=== PATIENT | female | born 1935 | race Caucasian/White ===

== ENCOUNTER 2017-08-28 02:29 | Inpatient (IN) | payer MEDICARE, OTHER ==
[~2017-08-28] VITALS: Ht 157.5 cm; Wt 62.6 kg
[2017-08-28] VITALS (7 sets, daily range): BP systolic 107–183; BP diastolic 40–82
[~2017-08-28 02:29] MED LIST: ACETAMINOPHEN-1 EAC1 PO; ADULT LOW DOSE81 MG PO; ASPIR 8181 MG PO; ATORVASTATIN CA40 MG PO; B-100 COMPLEX1 EAC1 PO; BENADRYL25 MG PO; CARDIZEM CD180 MG PO; CELEXA20 MG PO; LANOXIN 0.120.125 M1 PO; MEDROLDOSEPACK PO; METOPROLOL SUC100 MG PO; MULTIVITAMINS PO; NORVASC 5 MG TAB5 MG PO; OMEPRAZOLE; PEPCID20 MG PO; PRILOSEC 20 MG20 MG PO; SUPER B COMPLE1 EAC3 PO; TONIC WATER; XARELTO20 MG PO; propanolol PO
[2017-08-28 02:59] LABS: ABSOLUTE BASOPHILS 0.1 thou/uL (0.0-0.2); ABSOLUTE EOSINOPHILS 0.6 thou/uL (0.0-0.7); ABSOLUTE LYMPHOCYTES 2.3 thou/uL (0.8-5.3); ABSOLUTE MONOCYTES 0.7 thou/uL (0.0-1.2); ABSOLUTE NEUTROPHILS 5.3 thou/uL (1.6-8.1); EOSINOPHILS 6.5 %; HEMATOCRIT 35.1 % (37.0-47.0); HEMOGLOBIN 11.7 gm/dL (12.0-15.0); LYMPHOCYTES 25.7 %; MCHC 33.4 g/dL (28.0-37.0); MCV 89.8 fL (80.0-100.0); MPV 9.8 fl. (7.2-11.1); NUCLEATED RBCS 0 /100WBC; PLATELET COUNT* 171 thou/uL (150-400); POLYS 58.8 %; RBC 3.91 mil/uL (4.20-5.00); RDW-CV 15.3 % (10.5-14.5)
[2017-08-28 03:04] LABS: INR 1.2; PROTIME 11.4 Seconds (9.20-11.50)
[2017-08-28 03:09] LABS: ANION GAP 8 mmol/L (7-16); BUN 18 mg/dL (7-18); CALCIUM 8.9 mg/dL (8.5-10.1); CHLORIDE 104 mmol/L (98-107); CO2 28 mmol/L (21-32); CREATININE 1.2 mg/dL (0.6-1.3); GLUCOSE 151 mg/dL (70-99); POTASSIUM 4.4 mmol/L (3.5-5.1); SODIUM 140 mmol/L (136-145)
[2017-08-28 03:20] LABS: ALBUMIN 3.6 g/dL (3.4-5.0); ALKALINE PHOSPHATASE 68 U/L (46-116); LIPASE 229 U/L (73-393); NT-PRO BRAIN NAT PEPTIDE 7870 pg/mL (<300); SGOT 27 U/L (15-37); SGPT 32 U/L (30-65); TOTAL BILIRUBIN 0.5 mg/dL (<0.1-1.0); TROPONIN-I LEVEL <0.06 ng/mL (<0.06)
[2017-08-28 09:23] LABS: CHOLESTEROL 141 mg/dL (<200); HDL CHOLESTEROL 76 mg/dL (>40); LDL CHOLESTEROL 55 mg/dL (<100); SERUM ASSESSMENT Clear; TC:HDL 1.9 Ratio (Not establshd); TRIGLYCERIDE 54 mg/dL (<150); VLDL 11 mg/dL (<40)
--- NOTE | 2017-08-28 14:38 | EKG ---
[place] [address] ELECTROCARDIOGRAM REPORT Name: ELIECER JOHNSON Room: [address] ADM IN M.R.#: [id number] Admission: 08/28/17 Attend Phys: Alberto Bryan Discharge: Date of : 31 Report #: [id number] THIS REPORT FOR: //name// [facility] ED Test Date: 2017-08-28 Test Time: 02:31:45 Pat Name: ELIECER JOHNSON Department: Room: [facility] Gender: F Audit Associate: TO : 1935 Requested By: Karl Gipson Order Number: [id number] MD: Ravinder Brooks Measurements Intervals [place] Rate: 70 P: 0 LA: 53 QRS: 27 QRSD: 76 T: -85 QT: 395 QTc: 427 Interpretive Statements Ventricular-paced complexes No further rhythm analysis attempted due to paced rhythm Borderline low voltage, extremity leads Repol abnrm suggests ischemia, diffuse leads Compared to ECG 06/29/2017 01:44:57 Early repolarization now present Possible ischemia now present Electronically Signed On 08-28-2017 14:38:31 PANMAN by Ravinder Brooks [email or web address] <ELECTRONICALLY SIGNED> By: Ravinder Brooks MD, FACC 08/28/17 1438 0231 023 Ravinder Brooks MD, FACC /EPI
[2017-08-29] VITALS: BP 112/49
[2017-08-29 04:00] VITALS: BP 115/50
[2017-08-29 04:14] LABS: ABSOLUTE BASOPHILS 0.1 thou/uL (0.0-0.2); ABSOLUTE EOSINOPHILS 0.4 thou/uL (0.0-0.7); ABSOLUTE LYMPHOCYTES 2.3 thou/uL (0.8-5.3); ABSOLUTE MONOCYTES 0.5 thou/uL (0.0-1.2); ABSOLUTE NEUTROPHILS 2.2 thou/uL (1.6-8.1); BASOPHILS 0.9 %; EOSINOPHILS 7.6 %; HEMATOCRIT 30.3 % (37.0-47.0); HEMOGLOBIN 10.1 gm/dL (12.0-15.0); LYMPHOCYTES 41.8 %; MCH 29.6 pg (26.0-34.0); MCHC 33.2 g/dL (28.0-37.0); MONOCYTES 9.4 %; MPV 9.5 fl. (7.2-11.1); NUCLEATED RBCS 0 /100WBC; PLATELET COUNT* 138 thou/uL (150-400); POLYS 40.3 %; RBC 3.41 mil/uL (4.20-5.00); RDW-CV 14.6 % (10.5-14.5); WBC 5.6 thou/uL (4.0-11.0)
[2017-08-29 04:19] LABS: CALCIUM 8.6 mg/dL (8.5-10.1); CREATININE 1.4 mg/dL (0.6-1.3)
[2017-08-29 04:22] LABS: POTASSIUM 3.1 mmol/L (3.5-5.1)
[2017-08-29 07:51] VITALS: BP 131/68
[2017-08-29 07:55] VITALS: BP 131/68
[2017-08-29] MEDS ORDERED: LASIX 20 MG TAB20 MG PO (09:44)
[2017-08-29] MEDS ORDERED: KLOR-CON 1010 MEQ PO (09:45)
[2017-08-29] MEDS ORDERED: SYNTHROID50 MCG PO (11:46)
--- NOTE | 2017-08-31 10:12 | CON ---
[address] [address] CONSULTATION Name: ELIECER JOHNSON Room: [address] IN M.R.#: [id number] Admission: 08/28/17 Attend Phys: Alberto Bryan Discharge: 08/29/17 Date of : 31 Report #: [id number] THIS REPORT FOR: //name// CC: Corwin Ernst INPATIENT CONSULTATION PRIMARY PERFORMANCE IMPROVEMENT SPECIALIST: Claude Pena MD REQUESTING PHYSICIAN FOR CONSULTATION: Dr. Koroma. PRIMARY CARE PHYSICIAN: Corwin Bonner DO REASON FOR CONSULTATION: Shortness of breath. HISTORY OF PRESENT ILLNESS: The patient is an 81-year-old woman with a history of nonischemic cardiomyopathy, Takotsubo etiology and mild to moderate aortic insufficiency presenting with increasing shortness of breath. Chest x-ray was unremarkable but her symptoms did improve with Lasix. She had an episode of chest discomfort. Her ECG was nondiagnostic. She has a history of a permanent pacemaker. She was admitted for observation and her troponin levels are normal and she is asymptomatic for shortness of breath after receiving IV Lasix overnight. She denies syncope or presyncope. Over the summer, she did notice leg swelling but really had only been shortness of breath recently. She denies noncompliance with other medical therapies for her cardiomyopathy. PAST MEDICAL HISTORY: She had a cardiac catheterization in June of last year which demonstrated nonischemic Takotsubo cardiomyopathy. She had an AV block permanent pacemaker. She has mild to moderate aortic insufficiency, hypertension, and the aforementioned hyperlipidemia. SOCIAL HISTORY: She is a nonsmoker. FAMILY HISTORY: Noncontributory. HOME MEDICATIONS: Atorvastatin 40 mg daily, Celexa daily, digoxin 125 mcg daily, diltiazem 180 mg daily, Toprol-XL 200 mg daily, and Xarelto 15 mg daily. REVIEW OF SYSTEMS: GASTROINTESTINAL: [place], [place] [address] CONSULTATION Name: ELIECER JOHNSON Room: [address]#: [id number] Admission: 08/28/17 Attend Phys: Alberto Bryan Discharge: 08/29/17 Date of : 31 Report #: [id number] GENITOURINARY: No dysuria or hematuria. PAD: Denies any history of cardiovascular, strokes, or claudication. NEUROLOGIC: Denies headaches or seizures. She has a remote history of syncope, but denies syncope with this episode. GENERAL: No fevers or chills. ALLERGIES: Denies any aspirin or contrast allergies. PSYCHIATRIC: No depression or anxiety. SKIN: No rashes. EYES: she does use glasses. CARDIOVASCULAR: As above, positive chest discomfort, positive for shortness of breath, positive edema intermittent. PHYSICAL EXAMINATION: VITAL SIGNS: Blood pressure this morning is 155/65, pulse is 68, weight is 62.7 kilos. GENERAL: This is a pleasant elderly female. She is alert, oriented, in no apparent distress. NECK: Supple. No jugular venous distention. CARDIOVASCULAR: Regular. There is faint diastolic murmur. LUNGS: Clear to auscultation. ABDOMEN: Nontender. EXTREMITIES: There is no peripheral edema. IMAGING DATA: Chest x-ray reveals cardiomegaly, no significant infiltrates. LABORATORY DATA: Cardiac troponin level was 0.06 x 2 sets. IMPRESSION AND PLAN: 1. Atrial fibrillation. This is not really an issue. She presents for stable heart racing, we will continue with anticoagulation. 2. Acute diastolic congestive heart failure. I think she should be on a mild dose of diuretics. I will prescribe her Lasix 20 mg with 10 of potassium to be taken 3 days per week. 3. Nonischemic cardiomyopathy. She will continue with aggressive medical therapy. 4. Chest pain. I think this is noncardiac related to ischemia maybe related to congestive heart failure. 5. It is okay for her to continue with present medical therapy with addition of intermittent Lasix. Thank you for allowing me to participate in her care. <ELECTRONICALLY SIGNED> By: Ravinder Brooks MD, FACC 08/31/17 1012 1333 [id number] Brooks MD, FACC /nt
== END 2017-08-29 12:45 | disposition home or self-care (01) | DRG 291 ==
LOC: M.ERS 02:29 → M.3W 03:31 → M.TBA-ER 03:31 → M.3W 04:20
PROVIDERS: Emergency Medicine; ADMIT Internal Medicine
DX: I50.31 Acute diastolic (congestive) heart failure (principal); J96.20 Acute and chronic respiratory failure, unspecified whether with hypoxia or hypercapnia; I42.9 Cardiomyopathy, unspecified; I12.9 Hypertensive chronic kidney disease with stage 1 through stage 4 chronic kidney disease, or unspecified chronic kidney disease; N18.3 Chronic kidney disease, stage 3 (moderate); E78.5 Hyperlipidemia, unspecified; E03.9 Hypothyroidism, unspecified; I48.91 Unspecified atrial fibrillation; I25.2 Old myocardial infarction; Z90.49 Acquired absence of other specified parts of digestive tract; Z95.0 Presence of cardiac pacemaker; Z79.01 Long term (current) use of anticoagulants; Z79.899 Other long term (current) drug therapy; Z82.49 Family history of ischemic heart disease and other diseases of the circulatory system

== ENCOUNTER 2017-09-08 09:50 | Inpatient (IN) | payer MEDICARE, OTHER ==
[~2017-09-08] VITALS: Ht 157.5 cm; Wt 60.8 kg
[~2017-09-08 09:50] MED LIST changes: +KLOR-CON 1010 MEQ PO; +LASIX 20 MG TAB20 MG PO; +SYNTHROID50 MCG PO
[2017-09-08 09:56] VITALS: BP 200/92
[2017-09-08 10:21] LABS: ABSOLUTE BASOPHILS 0.2 thou/uL (0.0-0.2); ABSOLUTE EOSINOPHILS 0.4 thou/uL (0.0-0.7); ABSOLUTE LYMPHOCYTES 1.6 thou/uL (0.8-5.3); ABSOLUTE MONOCYTES 0.8 thou/uL (0.0-1.2); ABSOLUTE NEUTROPHILS 4.5 thou/uL (1.6-8.1); BASOPHILS 2.5 %; EOSINOPHILS 4.8 %; HEMATOCRIT 38.3 % (37.0-47.0); HEMOGLOBIN 12.7 gm/dL (12.0-15.0); LYMPHOCYTES 21.2 %; MCH 29.4 pg (26.0-34.0); MCHC 33.1 g/dL (28.0-37.0); MCV 88.8 fL (80.0-100.0); MONOCYTES 11.2 %; MPV 9.4 fl. (7.2-11.1); NUCLEATED RBCS 0 /100WBC; PLATELET COUNT* 195 thou/uL (150-400); POLYS 60.3 %; RBC 4.31 mil/uL (4.20-5.00); RDW-CV 14.8 % (10.5-14.5); WBC 7.4 thou/uL (4.0-11.0)
[2017-09-08 10:28] LABS: ANION GAP 5 mmol/L (7-16); BUN 16 mg/dL (7-18); CALCIUM 9.3 mg/dL (8.5-10.1); CHLORIDE 98 mmol/L (98-107); CO2 31 mmol/L (21-32); CREATININE 1.1 mg/dL (0.6-1.3); GLUCOSE 118 mg/dL (70-99); POTASSIUM 4.7 mmol/L (3.5-5.1); SODIUM 134 mmol/L (136-145)
[2017-09-08 10:46] LABS: ALBUMIN 3.6 g/dL (3.4-5.0); ALKALINE PHOSPHATASE 71 U/L (46-116); APTT 24.5 Seconds (25.0-31.3); CK-MB MASS 0.7 ng/mL (<0.5-3.6); INR 1.1; LIPASE 208 U/L (73-393); MAGNESIUM 1.9 mg/dL (1.8-2.4); NT-PRO BRAIN NAT PEPTIDE 6146 pg/mL (<300); PROTIME 10.9 Seconds (9.20-11.50); SGOT 36 U/L (15-37); SGPT 36 U/L (30-65); TOTAL BILIRUBIN 1.1 mg/dL (<0.1-1.0); TOTAL PROTEIN 7.4 g/dL (6.4-8.2); TROPONIN-I LEVEL <0.06 ng/mL (<0.06)
[2017-09-08 13:04] VITALS: BP 187/100
--- NOTE | 2017-09-08 13:15 | NUR ---
RECEIVED REPORT. PT TRANSFERRED TO ROOM 224 VIA CART. VSS. CARDIAC MONTIORING IN PLACE AFIB. ADMISISON HISTORY AND ASSESSMENT COMPLETED CHARTED. PT ALERT AND ORIENTED. PT ON RA HOWEVER PT IS SOB WITH ACTIVITY. 2L ON STAND BY. PT DENIES ANY COMPLAINTS OF PAIN OR DISCOMFORT. PT IS UP WITH STAND BY ASSISTANCE. PT ORIENTED TO ROOM AND CALL LIGHT. PT COMMUNICATES UNDERSTANDING. PT'S BELONINGS IN CARDIAC REHAB CURRENTLY. CALLED AND THEY STATED THEY WOULD BRING UP HER BELONGINGS TO HER ROOM. PT'S BP ELEVATED-CARDIOLOGY CONSULTED. PT'S METOPROLOL GIVEN. CALL LIGHT IS WITHIN REACH. WILL CONTINUE TO MONITOR FOR DURAITON OF SHIFT.
[2017-09-08 15:39] VITALS: BP 154/73
--- NOTE | 2017-09-08 16:14 | 2DMMODE ---
[place] [address] 2 D/M-MODE ECHOCARDIOGRAM Name: ELIECER JOHNSON Room: [facility] IN [facility]#: [id number] Admission: 09/08/17 Attend Phys: Dieudonne Rodriguez, Discharge: Date of : 31 Date of Service: 09/08/17 1614 Report #: [id number] THIS REPORT FOR: //name// APPROVED REPORT Study performed: 09/08/2017 15:51:39 EXAM: Limited 2D Echocardiogram Patient Location: In-Patient Room #: 224 Status: routine BSA: 1.62 HR: 103 bpm BP: 187/100 mmHg Rhythm: NSR Other Information Study Quality: Good Indications Dyspnea Chest Pain Volumes Left Atrial Volume (Systole) LA ESV Index: 66.30 mL/m2 Left Ventricle The left ventricle is normal size. There is normal LV segmental wall motion. Mild concentric left ventricular hypertrophy. The left ventricular systolic function is normal. The left ventricular ejection fraction is within the normal range. LVEF is 55%. This study is not technically sufficient to allow evaluation of the LV diastolic function due to atrial fibrillation. Right Ventricle The right ventricle is normal size. The right ventricular systolic function is normal. Pacemaker lead is present in the right ventricle. Atria Left atrium is moderately dilated. Right atrium is mildly dilated. Aortic Valve Mild [place] [address] 2 D/M-MODE ECHOCARDIOGRAM Name: ELIECER JOHNSON Room: [address] IN M.R.#: [id number] Admission: 09/08/17 Attend Phys: Dieudonne Rodriguez, Discharge: Date of : 31 Date of Service: 09/08/17 1614 Report #: [id number] Mitral Valve The mitral valve is normal in structure. Tricuspid Valve The tricuspid valve is normal in structure. Pulmonic Valve The pulmonary valve is normal in structure. Great Vessels The aortic root is normal in size. IVC is normal in size and collapses >50% with inspiration. Pericardium There is no pericardial effusion. <Conclusion> The left ventricle is normal size. Mild concentric left ventricular hypertrophy. The left ventricular systolic function is normal. The left ventricular ejection fraction is within the normal range. LVEF is 55%. This study is not technically sufficient to allow evaluation of the LV diastolic function due to atrial fibrillation. The right ventricle is normal size. Left atrium is moderately dilated. Right atrium is mildly dilated. Mild aortic valve sclerosis. The mitral valve is normal in structure. The tricuspid valve is normal in structure. IVC is normal in size and collapses >50% with inspiration. There is normal LV segmental wall motion. Pacemaker lead is present in the right ventricle. <ELECTRONICALLY SIGNED> By: Jordan Farmer MD, FACC 09/08/17 161 13 13 Jordan Farmer MD, FAC /INF
--- NOTE | 2017-09-08 17:41 | EKG ---
[place] [address] ELECTROCARDIOGRAM REPORT Name: ELIECER JOHNSON Room: [address] ADM IN M.R.#: [id number] Admission: 09/08/17 Attend Phys: Dieudonne Rodriguez MD Discharge: Date of : 33 Report #: [id number] THIS REPORT FOR: //name// [facility] ED Test Date: 2017-09-08 Test Time: 09:52:04 Pat Name: ELIECER JOHNSON Department: Room: [facility] Gender: F Rn Labor Delivery: Amanda STANTON : 1935 Requested By: Bryce Catherine Order Number: [id number] MD: Claude ePna Measurements Intervals [place] Rate: 122 P: [place]: QRS: -6 QRSD: 74 T: 220 QT: 327 QTc: 466 Interpretive Statements Atrial fibrillation Inferior infarct, age indeterminate Abnrm T, consider ischemia, anterolateral lds Compared to ECG 08/28/2017 02:31:45 Ventricular premature complex(es) now present Myocardial infarct finding now present Early repolarization no longer present Possible ischemia still present Electronically Signed On 09-08-2017 17:41:07 RAMP SERVICE MAN by Claude Pena [email or web address] <ELECTRONICALLY SIGNED> By: Claude Pena MD, FACC 09/08/17 1741 0952 0952 Claude Pena MD, FACC /EPI
[2017-09-08 20:00] VITALS: BP 146/78
--- NOTE | 2017-09-08 23:56 | NUR ---
PT A/OX4, AFIB ON THE MONITOR, RA, UP AD LAQUITA, FREE FROM SOA/PAIN, MEDS/ASSESSMENT PER CHARTING, HOURLY ROUNDING IN PLACE, FALL PRECAUTIONS IN PLACE, BED LOW LOCKED POSITION AND CALL LIGHT IN REACH, VSS, WILL CONT TO MONITOR.
[2017-09-09] VITALS: BP 128/53
[2017-09-09 03:57] VITALS: BP 143/59
[2017-09-09 07:53] VITALS: BP 150/73
--- NOTE | 2017-09-09 08:00 | NUR ---
RECEVIED REPORT. ASSUMED CARE OF PT AT 0730. VSS. CARDIAC MOTNIORING IN PLACE A-PACED WITH UNDERLYING AFIB. AM ASSESSMENT AND VITALS COMPLETED CHARTED. PT ALERT AND ORIENTED. PT ON RA. PT UP WITH SBA TO BATHROOM THIS AM. PT HAS NOTED EXERTIONAL DYSPNEA. PT'S O2 SAT 96% ON RA. PT ALERT AND OREINTED. IV SALINE LOCKED. PT DENIES ANY COMPLAINTS OF PAIN OR DISCOMFORT THIS AM. PT INFORMED OF PLAN OF CARE. PT COMMUNICATES UNDERSTANDING. CALL LIGHT IS WITHIN REACH. WILL CONTINUE TO MOTNIOR FOR DURAITON OF SHIFT.
[2017-09-09] MEDS ORDERED: SYNTHROID75 MCG PO (09:26)
[2017-09-09 10:33] VITALS: BP 150/73
--- NOTE | 2017-09-09 11:30 | NUR ---
DISCAHRGE ORDERS RECEIVED AND PREPARED. IV AND CARDIAC MONITORING DISCONTINUED. PT EDUCATED ON DISCHARGE INSTRCUTIONS. PT COMMUNICATES UNDERSTANDING. PT'S SCRIPT SENT TO PT'S PHARMACY. PT GIVEN COPY OF DISCHARGE PAPERWORK. PT ESCORTED OFF UNIT VIA W/C. PT LEFT IN PRIVATE VEHICLE.
--- NOTE | 2017-09-09 15:43 | EKG ---
[place] [address] ELECTROCARDIOGRAM REPORT Name: ELIECER JOHNSON Room: [address] DIS IN M.R.#: [id number] Admission: 09/08/17 Attend Phys: Dieudonne Rodriguez MD Discharge: 09/09/17 Date of : 33 Report #: [id number] THIS REPORT FOR: //name// [facility] Test Date: 2017-09-08 Test Time: 09:12:36 Pat Name: ELIECER JOHNSON Department: Room: [address] Gender: F Bread Jockey: 27 : 1935 Requested By: Claude Pena Order Number: [id number] Miguel MD: Jordan Farmer Measurements Intervals [place] Rate: 104 P: [place]: QRS: 7 QRSD: 74 T: 244 QT: 336 QTc: 442 Interpretive Statements Afib/flut and V-paced complexes No further rhythm analysis attempted due to paced rhythm Repol abnrm, possible ischemia Compared to ECG 08/28/2017 02:31:45 No significant changes Electronically Signed On 09-09-2017 15:43:41 STRIPPER AND OPAQUER APPRENTICE by Jordan Farmer [email or web address] <ELECTRONICALLY SIGNED> By: Jordan Farmer MD, [facility] 09/09/17 1543 0912 0912 Jordan Farmer MD, [facility] /EPI
== END 2017-09-09 11:29 | disposition home or self-care (01) | DRG 291 ==
LOC: M.ERS 09:50 → M.2W 10:45 → M.TBA-ER 10:45 → M.2W 13:29
PROVIDERS: Family Medicine; ADMIT Internal Medicine
DX: I13.0 Hypertensive heart and chronic kidney disease with heart failure and stage 1 through stage 4 chronic kidney disease, or unspecified chronic kidney disease (principal); I50.33 Acute on chronic diastolic (congestive) heart failure; E87.1 Hypo-osmolality and hyponatremia; J90 Pleural effusion, not elsewhere classified; I48.91 Unspecified atrial fibrillation; N18.3 Chronic kidney disease, stage 3 (moderate); E03.9 Hypothyroidism, unspecified; Z90.49 Acquired absence of other specified parts of digestive tract; Z95.0 Presence of cardiac pacemaker; Z88.8 Allergy status to other drugs, medicaments and biological substances; Z82.49 Family history of ischemic heart disease and other diseases of the circulatory system; Z79.899 Other long term (current) drug therapy; Z79.01 Long term (current) use of anticoagulants

== ENCOUNTER 2017-09-25 20:53 | Inpatient (IN) | payer MEDICARE, OTHER ==
[~2017-09-25] VITALS: Ht 165.1 cm; Wt 59.0 kg
[2017-09-25 20:00] VITALS: BP 132/61
[~2017-09-25 20:53] MED LIST changes: +SYNTHROID75 MCG PO
[2017-09-25 20:54] VITALS: BP 147/84
[2017-09-25 21:42] LABS: ABSOLUTE BASOPHILS 0.1 thou/uL (0.0-0.2); ABSOLUTE EOSINOPHILS 0.2 thou/uL (0.0-0.7); ABSOLUTE LYMPHOCYTES 1.4 thou/uL (0.8-5.3); ABSOLUTE MONOCYTES 0.6 thou/uL (0.0-1.2); ABSOLUTE NEUTROPHILS 4.6 thou/uL (1.6-8.1); BASOPHILS 1.2 %; EOSINOPHILS 2.7 %; HEMATOCRIT 36.6 % (37.0-47.0); HEMOGLOBIN 12.1 gm/dL (12.0-15.0); LYMPHOCYTES 20.3 %; MCH 29.2 pg (26.0-34.0); MCV 88.6 fL (80.0-100.0); MONOCYTES 8.5 %; MPV 9.3 fl. (7.2-11.1); NUCLEATED RBCS 0 /100WBC; PLATELET COUNT* 187 thou/uL (150-400); POLYS 67.3 %; RBC 4.13 mil/uL (4.20-5.00); RDW-CV 14.4 % (10.5-14.5); WBC 6.9 thou/uL (4.0-11.0)
[2017-09-25 21:51] LABS: APTT 27.1 Seconds (25.0-31.3); INR 1.2; PROTIME 11.6 Seconds (9.20-11.50)
[2017-09-25 21:53] LABS: ANION GAP 8 mmol/L (7-16); BUN 20 mg/dL (7-18); CALCIUM 9.2 mg/dL (8.5-10.1); CHLORIDE 101 mmol/L (98-107); CO2 29 mmol/L (21-32); CREATININE 1.3 mg/dL (0.6-1.3); GLUCOSE 133 mg/dL (70-99); POTASSIUM 4.4 mmol/L (3.5-5.1); SODIUM 138 mmol/L (136-145)
[2017-09-25 22:00] LABS: ALBUMIN 3.6 g/dL (3.4-5.0); ALKALINE PHOSPHATASE 60 U/L (46-116); SGOT 24 U/L (15-37); SGPT 26 U/L (30-65); TOTAL BILIRUBIN 0.8 mg/dL (<0.1-1.0); TROPONIN-I LEVEL <0.06 ng/mL (<0.06)
[2017-09-25 22:43] LABS: URINE BILIRUBIN NEGATIVE (Negative); URINE BLOOD TRACE (Negative); URINE CLARITY CLEAR; URINE COLOR YELLOW; URINE GLUCOSE-RANDOM NEGATIVE (Negative); URINE KETONES TRACE (Negative); URINE LEUKOCYTES-REFLEX 1+ (Negative); URINE NITRITE-REFLEX NEGATIVE (Negative); URINE PROTEIN 1+ (Negative); URINE UROBILINOGEN 0.2 E.U./dl (0.2-1.0)
[2017-09-25 22:58] LABS: SQUAMOUS >10 Many /LPF (0-3)
[2017-09-25 22:59] LABS: CASTS None Seen /LPF (None Seen); CRYSTALS None Seen /LPF (None Seen); URINE RBC None Seen /HPF (0-2); URINE WBC-REFLEX >25 Many /HPF (0-5)
[2017-09-25 23:03] LABS: BE -0.4 mmol/L (-2 to +3); HCO3 23.4 mmol/L (22.0-26.0); PCO2 35.5 mmHg (35.0-45.0); PO2 78.4 mmHg (75.0-100.0); pH 7.436 (7.340-7.450)
[2017-09-25 23:30] VITALS: BP 158/80
--- NOTE | 2017-09-26 03:24 | NUR ---
PATIENT ADMITTED TO THE FLOOR FOR SOA, DIZZINESS, AND NEAR SYCOPE. ALERT AND ORIENTED X 4. CONT. A-FIB ON MONITOR. DENIES PAIN OR DISCOMFORT. NO SIGN OF DISTRESS WILL PROCEED WITH CURRENT PLAN OF CARE IN PLACE.
[2017-09-26 04:00] VITALS: BP 141/64
[2017-09-26 08:00] VITALS: BP 138/61
--- NOTE | 2017-09-26 11:49 | EKG ---
[place] [address] ELECTROCARDIOGRAM REPORT Name: ELIECER JOHNSON Room: [address] ADM IN M.R.#: [id number] Admission: 09/25/17 Attend Phys: Nima Almendarez, Discharge: Date of : 33 Report #: [id number] THIS REPORT FOR: //name// [facility] ED Test Date: 2017-09-25 Test Time: 21:03:07 Pat Name: ELIECER JOHNSON Department: Room: [facility] Gender: F Biosolids Management Technician: TV : 1935 Requested By: Michelle Laws Order Number: [id number] MD: Ravinder Brooks Measurements Intervals [place] Rate: 72 P: MD: QRS: -2 QRSD: 84 T: -69 QT: 392 QTc: 430 Interpretive Statements Afib/flut and V-paced complexes No further rhythm analysis attempted due to paced rhythm Probable LVH with secondary repol abnrm Compared to ECG 09/08/2017 09:52:04 Myocardial infarct finding no longer present Possible ischemia no longer present Electronically Signed On 09-26-2017 11:49:29 INVENTORY CONTROL ASSOCIATE by Ravinder Brooks [email or web address] <ELECTRONICALLY SIGNED> By: Ravinder Brooks MD, FACC 09/26/17 1149 02 02 Ravinder Brooks MD, FAC /EPI
--- NOTE | 2017-09-26 12:05 | NUR ---
ASSUMED PT CARE AT 0730. FULL ASSESMENT DONE CHARTED. PT A/O X4, DENIES PAIN, VSS, AFIB/VPACED ON THE MONITOR. PT HOPEFUL TO GO HOME TODAY, PT EDUCATED THAT THE NEUROLOGIST IS COMING TO SEE HER TODAY. PT AGREEABLE TO THIS. PTS HOME MEDS RESTARTED, NS INFUSING TO LEFT AC AT 100MLS/HR. FALL PRECATUIOINS IN PLACE, CALL LIGHT IN REACH. WILL CONTINUE WITH PLAN OF CARE.
[2017-09-26 12:11] VITALS: BP 144/77
[2017-09-26 16:15] VITALS: BP 126/63
[2017-09-26 17:09] VITALS: BP 126/63
--- NOTE | 2017-09-26 19:06 | NUR ---
PT WAS HOPEFUL TO GO HOME TODAY,HER SON AND DIL HERE MOST OF THE DAY, EXPRESSED CONCERN ABOUT PT GOING HOME AND BEING WEAK, THEY WANT PT TO HAVE SOME THERAPY IS POSSIBLE. PT SPOKE TO DR CRAWFORD AND IS WILLING TO STAY AND HAVE MORE LABS DRAWN AND PT/OT TOMORROW. FALL PRECATUINS IN PLACE, PT UNSTEADY ON FEET. VSS, AFIB/VPACED ON THE MONITOR. WILL CONTINUE TO MONITOR.
[2017-09-26 20:00] VITALS: BP 136/76
[2017-09-27] VITALS (12 sets, daily range): BP systolic 134–172; BP diastolic 58–92
[2017-09-27 04:38] LABS: HEMATOCRIT 30.8 % (37.0-47.0); HEMOGLOBIN 10.5 gm/dL (12.0-15.0); MCH 29.9 pg (26.0-34.0); MCHC 34.1 g/dL (28.0-37.0); MCV 87.5 fL (80.0-100.0); MPV 9.5 fl. (7.2-11.1); RBC 3.52 mil/uL (4.20-5.00); RDW-CV 14.5 % (10.5-14.5); WBC 6.3 thou/uL (4.0-11.0)
[2017-09-27 05:10] LABS: CALCIUM 8.2 mg/dL (8.5-10.1); CREATININE 1.1 mg/dL (0.6-1.3); MAGNESIUM 1.5 mg/dL (1.8-2.4)
--- NOTE | 2017-09-27 06:46 | NUR ---
THIS NURSE ASSUMES CARE OF PT 09/26/17 AT 1930, PT IS ALERT AND ORIENTED X4, PT RESTS QUIETLY WITH EYES CLOSED MOST OF THIS SHIFT, PT TRACING A FIB VPACED ON CARDIAC MONITORING, PT PLACED ON 2L SUPPLEMENTAL O2 THIS AM FOR O2 SAT IN LOW 90S AND INCREASED WORK OF BREATHING, PT UP TO BATHROOM WITH ASSIST THROUGHOUT THE NIGHT
--- NOTE | 2017-09-27 15:00 | NUR ---
MET WITH PT AND THEN SPOKE WITH DTR/MELQUIADES TEJADA OVER THE PHONE. ALSO MET WITH SON/SUMAN IN WAITING ROOM. PT LIVES ALONE. KNOWN TO CM FROM ADMIT IN JUN WHEN SHE WENT TO STAY WITH MARIAH/ROSITA IN [place] WITH RIA GARDUNO. PT ADMITTED WITH AMS. PT WAS CONFUSED DURING CONVERSATION, UNABLE TO ANSWER ALL QUESTIONS AND BECAME FRUSTRATED. PER ROSITA, PT HAS DEMENTIA AND HAS BEEN LIVING ALONE SINCE SHE LEFT HER HOUSE IN JUN. PT HAD HH WHILE SHE WAS AT [employer] BUT DISCONTINUED THEM BEFORE RETURNING HOME. PT HAS BEEN DRIVING SOME. ROSITA AND AND PT'S SON/SUMAN CHECK ON PT REGULARLY/AT LEAST EVERY WEEKEND. ROSITA DOES SHOPPING, MAKES UP MEALS THAT PT CAN HEAT UP AND DOES CLEANING AND LAUNDRY. SUMAN STATED THAT HE COMES UP WITH HIS FROM [place] AND THEY STAY WITH PT PERIODICALLY. HE AND HIS LIVED WITH PT FOR A YEAR A FEW YEARS AGO. HE REPORTS SEEING A 'STEADY DECLINE' IN HER MENTAL CAPACITY. BOTH CHILDREN VOICED CONCERN ABOUT PT BEING ALONE BUT ROSITA DOESN'T WANT TO 'PUSH' PT TO MOVE. BOTH STATED THEY FEEL PT SHOULD BE IN AN ASSISTED LIVING SITUATION AND ONE HAD BEEN ARRANGED ABOUT A YEAR AGO IN [place], BUT PT DECLINED. SUMAN STATED THAT PT 'PUT HERSELF' ON THE WAITING LIST AT THE [facility] A YEAR AGO AND HE SPOKE WITH THEM TODAY AND THERE MAY BE AN APT IN ASSISTED LIVING SOON. AT THIS TIME, FAMILY IS WILLING FOR PT TO GO HOME WITH [facility] AND HH AND CONSIDER LIZETH AFTER THAT. SHE HAS HAD [facility] IN PAST AND ARE INTERESTED IN IT. SUMAN'S CAN STAY WITH PT FOR NOW. CALLED AND FAXED INITIAL REFERRAL TO [facility]. WILL FOLLOW
--- NOTE | 2017-09-27 17:57 | NUR ---
VSS, PT IS PROGROGRESSING TOWARDS GOAL, PT IS TRAACING V-PACED ON THE MONITOR AND UP WITH ONE AND IS CONFUSED, AND O2 NEEDS ARE RA, PT DENIES ANY PAIN AND HAS WORKED WITH PT/OT/SP,, PT HAS BEEN UP TO CHAIR FOR ALL MEALS AND DENIES ANY PAIN AT THIS TIME HOURLY ROUNDS COMPLETED.
[2017-09-28] VITALS (11 sets, daily range): BP systolic 129–163; BP diastolic 51–74
--- NOTE | 2017-09-28 04:24 | NUR ---
ASSUMED PT CARE AT 1930, PT IS AWAKE AND ALERT TO SELF AND PLACE. PT IS TRACING VPACED ONT HE MONITOR, ON RA SATTING MID TO HIGH 90'S. PT HAS HAD EPISODES OF CONFUSION THROUGHOUT THE NIGHT. NEURO CHECKS COMPLETED CHARTED. IVF INFUSING PER MAR. PT DENIES ANY PAIN OR NEEDS AT THIS TIME. PT DOES NOT CALL OUT CORRECTLY, PT SET OFF BED ALARM, AND TRIED TO UNPLUG THE BED FROM THE WALL TO STOP THE ALARM FROM GOING OFF, PT WAS GIVEN LOT'S OF VERBAL EDUCATION ON NEED TO CALL OUT FOR NEEDS. BED IN LOW POSITION, CALL LIGHT IN REACH, BED ALARM ON, YELLOW ARM BAND AND SOCKS IN PLACE. HOURLY ROUNDING COMPLETED FOR PT SAFETY.
--- NOTE | 2017-09-28 09:24 | NUR ---
ASSUMED CARE OF PT THIS AM AROUND 0715- ELECTRICAL MECHANIC IN PLACE ORDERED, TRACING V-PACED- UPON ASSESSMENT PT NOTED TO BE RESTING IN BED- PT NOTED TO BE CONFUSED, WITH WORDS NOT MAKING SINCE THIS AM- WHILE ADMINISTERING MEDICAITONS PT NOTED TO BE PICKING GOWN AND COVERS STATING THAT THERE WAS A PILL THAT WASN'T THERE- TRYING YO MAIL MESSENGER CONTRACTOR MEDICATIONS IN HAND THAT WERE NOT THERE- WHEN TRYING TO REDIRECT, PT NOTED TO BECOME AGGITATED- CONTINENT OF BOWEL AND BLADDER- ASSIST X1 WITH TRANSFERS- LCTA, DIMINISHED IN BASES- VSS, 02 SATS 98% ON RA- IV NOTED TO RIGHT FOREARM INTACT, IVF INFUSING PRESCIBED- IV ABT GIVEN THIS AM, NO ADVERSE REACTIONS TO NOTE- ABDOMEN SOFT/ROUND/NON-TENDER, BS X4 QUADS- PT REPORTS LAST BM 09/27/17, R/T COGNITION UNABLE TO KNOW AT THIS TIME- TRACE EDEME NOTED TO BLE- NEURO CHECKS IN PLACE INDICATED- PT DENIES ANY C/O PAIN/DISCOMFORT AT THIS TIME- GOOD PO INTAKE NOTED WITH BREAKFAST- CALL LIGHT AND PERSONAL BELONGINGS WITH IN REACH- BED ALARM INPLACE AND WORKING FOR PT SAFETY- HOURLY ROUNDS IN PLACE R/T SAFETY/NEEDS- ALL NEEDS MET AT THIS TIME-WCTM
--- NOTE | 2017-09-28 12:00 | NUR ---
CONTINUE TO FOLLOW, SPOKE WITH DTR/ROSITA AND WITH SON/SUMAN. PLAN IS STILL FOR PT TO RETURN HOME WITH 24HR FAMILY CARE AND HH WITH [facility]. THE FAMILY IS WORKING ON AN [facility] FOR PT. PT CONFUSED TODAY AND NEURO TO RE-EVAL. WILL FOLLOW
[2017-09-28 15:20] LABS: URINE BILIRUBIN NEGATIVE (Negative); URINE BLOOD NEGATIVE (Negative); URINE CLARITY CLEAR; URINE COLOR YELLOW; URINE GLUCOSE-RANDOM NEGATIVE (Negative); URINE KETONES NEGATIVE (Negative); URINE LEUKOCYTES-REFLEX NEGATIVE (Negative); URINE NITRITE-REFLEX NEGATIVE (Negative); URINE PROTEIN NEGATIVE (Negative); URINE SPECIFIC GRAVITY >= 1.030 (1.005-1.030); URINE UROBILINOGEN 0.2 E.U./dl (0.2-1.0)
--- NOTE | 2017-09-28 18:01 | NUR ---
PT DANILO RESTING IN BED, SON AND DAUGHTER IN LAW AT SIDE MOST SHIFT AND ACTIVE IN CARES- BOILERMAKING SUPERVISOR CONTINUED ORDERED, V-PACED WITH NOTED PACE MAKER- IV TO RIGHT FA INTACT WITH IVF INFUING ORDERED- LEVAQUIN D/C'D THIS SHIFT WITH BACTRIM BID STARTED- NEW CLEAN CATCH US SENT TO LAB THIS SHIFT ORDERED- BLOOD CULTURES NEGATIVE- POOR PO INTAKE NOTED THIS SHIFT WITH MEALS-PT NOTED TO BE SLEEPY THIS SHIFT- COGNITION SOME WHAT IMPROVED THROUGHOUT SHIFT-NEURO CONSULTED R/T HALLUCINATIONS; MRI AND EEG ORDERED PER - PT DENIES ANY C/O PAIN/DISCOMFORT AT THIS TIME- CALL LIGHT AND PERSONAL BELONGINGS WITH IN REACH- HOURLY ROUNDS IN PLACE- ALL NEEDS MET AT THIS TIME- WCTM
[2017-09-29] VITALS: BP 128/58
[2017-09-29 04:00] VITALS: BP 145/49
--- NOTE | 2017-09-29 05:21 | NUR ---
Assumed patient care at 1900. Patient alert to self, confused. Son at bedside. Nursing assessment completed as documented. Able to ambulate with STB and her walker. No complaints of pain or discomfort. Tolerated PO abt's well. No nausea noted. Patient "text" her son in her confusion and son called nurses station concerned "this is the first time my mom has ever texted" Reassurance provided and spoke with patient whom admitted to [facility]. Patient very much wants to go home. No skin issues noted at this time. Fall risk precautions in place. Hourly rounding completed as documented.
[2017-09-29 08:13] VITALS: BP 163/76
[2017-09-29 09:32] LABS: ABSOLUTE BASOPHILS 0.1 thou/uL (0.0-0.2); ABSOLUTE EOSINOPHILS 0.3 thou/uL (0.0-0.7); ABSOLUTE LYMPHOCYTES 1.4 thou/uL (0.8-5.3); ABSOLUTE MONOCYTES 0.5 thou/uL (0.0-1.2); ABSOLUTE NEUTROPHILS 3.6 thou/uL (1.6-8.1); BASOPHILS 1.2 %; EOSINOPHILS 4.9 %; HEMATOCRIT 34.6 % (37.0-47.0); HEMOGLOBIN 11.3 gm/dL (12.0-15.0); LYMPHOCYTES 23.3 %; MCH 29.2 pg (26.0-34.0); MCHC 32.6 g/dL (28.0-37.0); MCV 89.6 fL (80.0-100.0); MONOCYTES 9.2 %; MPV 9.4 fl. (7.2-11.1); NUCLEATED RBCS 0 /100WBC; PLATELET COUNT* 158 thou/uL (150-400); POLYS 61.4 %; RBC 3.87 mil/uL (4.20-5.00); RDW-CV 14.7 % (10.5-14.5); WBC 5.9 thou/uL (4.0-11.0)
--- NOTE | 2017-09-29 09:38 | NUR ---
ASSUMED CARE OF PT THIS AM AROUND 714- SALVAGE MACHINE OPERATOR IN PLACE ORDERED, V-PACED- UPON ASSESSMENT PT NOTED TO BE RESTING IN BED EYES CLOSED-PT A&O X2 WITH NOTED INTERMEDIATE CONFUSION- CONTINENT OF BOWEL AND BLADDER- ASSIST X-1 WITH TRANSFERS- LCTA, DIMINSHED IN BASES- NON-PRODUCTIVE COUGH NOTED- LABORED BREATHING NOTED, PT REPORTS THAT SHE FEELS THAT SHE JUST CAN'T CATCH BREATH- VSS, O2 98% ON 2L VIA NC- ABDOOMEN SOFT/ROUND/NON-TENDER, BS X4 QUADS-TRACE EDEMA NOTED TO BLE- NOTIFIED OF PT C/O AND ASSESSMENT FINDINGS- NEW ORDERS: CBC, CMP, BNP, TROP, CHEST X-RAY, AND EKG NOTED- IV NOTED TO RIGHT FA INTACT WITH COBAN, IVF INFUSING ORDERED- PO BACTRIM GIVEN PRESCIBED, NO ADVERSE REACTIONS TO NOTE- CALL LIGHT AND PERSONAL BELONGINGS WITH IN REACH- BED ALARM IN PLACE AND WORKING FOR PT SAFETY- HOURLY ROUNDS IN PLACE R/T SAFETY/NEEDS- ALL NEEDS MET AT THIS TIME-WCTM
[2017-09-29 09:43] LABS: ANION GAP 10 mmol/L (7-16); BUN 13 mg/dL (7-18); CALCIUM 8.1 mg/dL (8.5-10.1); CHLORIDE 104 mmol/L (98-107); CO2 22 mmol/L (21-32); CREATININE 0.9 mg/dL (0.6-1.3); GLUCOSE 122 mg/dL (70-99); SODIUM 136 mmol/L (136-145)
[2017-09-29 09:48] LABS: POTASSIUM 4.8 mmol/L (3.5-5.1)
[2017-09-29 09:54] LABS: ALBUMIN 3.3 g/dL (3.4-5.0); ALKALINE PHOSPHATASE 55 U/L (46-116); NT-PRO BRAIN NAT PEPTIDE 4905 pg/mL (<300); SGOT 33 U/L (15-37); SGPT 30 U/L (30-65); TOTAL BILIRUBIN 0.7 mg/dL (<0.1-1.0); TOTAL PROTEIN 6.2 g/dL (6.4-8.2); TROPONIN-I LEVEL <0.06 ng/mL (<0.06)
[2017-09-29 12:00] VITALS: BP 149/64
--- NOTE | 2017-09-29 12:51 | EKG ---
[place] [address] ELECTROCARDIOGRAM REPORT Name: ELIECER JOHNSON Room: [address] ADM IN M.R.#: [id number] Admission: 09/25/17 Attend Phys: Nima Almendarez, Discharge: Date of : 31 Report #: [id number] THIS REPORT FOR: //name// [facility] Test Date: 2017-09-29 Test Time: 09:55:47 Pat Name: ELIECER JOHNSON Department: Room: [address] Gender: F Record Center Specialist: : 1935 Requested By: Derek Rincon Order Number: [id number] Miguel MD: Frederick Pedro Measurements Intervals [place] Rate: 66 P: 0 [place]: 68 QRS: 267 QRSD: 148 T: 48 QT: 440 QTc: 461 Interpretive Statements Ventricular-paced complexes atrial fibrillation fusion beats noted nonspecific st changes No further analysis attempted due to paced rhythm Compared to ECG 09/25/2017 21:03:07 no change Electronically Signed On 09-29-2017 12:50:55 APPLIANCE SERVICER by Frederick Pedro [email or web address] <ELECTRONICALLY SIGNED> By: Frederick Pedro MD, [facility] 09/29/17 1250 0955 0955 Frederick Pedro MD, [facility] /EPI
[2017-09-29 16:00] VITALS: BP 159/77
--- NOTE | 2017-09-29 17:57 | NUR ---
PT HIWOTENLTY RESTING IN BED, SON AT SIDE- IMPORT EXPORT MANAGER IN PLACE ORDERED, V-PACED- IV TO RIGHT FA INTACT AND SL- POOR PO INTAKE CONTINUES THIS SHIFT- BNP NOTED TO BE ELEVATED AT 4905, CHEST X-RAY RESULTS COMMUNICATED TO - NEW ORDERS NOTED FOR 40MG IV LASIX X1 AND GIVEN- TROPS NORMAL, EKG NORMAL- PT NOTED TO HAVE IMPROVMENT IN BREATHING POST LASIX ADMINSTRATION THROUGHOUT SHIFT- DENIES PAIN/DISCOMFORT AT THIS TIME- CALL LIGHT AND PERSONAL BELONGINGS WITH IN REACH-FREQUENT CHECKS IN PLACE R/T SAFETY/NEEDS- ALL NEEDS MET AT THIS TIME-WCTM
[2017-09-29 20:00] VITALS: BP 146/65
[2017-09-30] VITALS: BP 147/69
[2017-09-30 04:00] VITALS: BP 149/56
--- NOTE | 2017-09-30 05:27 | NUR ---
PT CARE ASSUMED AFTER REPORT. ASSESSMENT COMPLETE. V PACED ON MONITOR. O2 2L NC. DENIES PAIN. CONTINUED CONFUSION AT TIMES. CALL LIGHT IN REACH. BED IN LOWEST POSITION. FALL PRECAUTIONS IN PLACE INCLUDING BED ALARM. PROGRESSING TOWRDS GOALS.
[2017-09-30 08:00] VITALS: BP 151/50
[2017-09-30 08:09] VITALS: BP 151/50
--- NOTE | 2017-09-30 11:28 | NUR ---
CONTINUE TO FOLLOW, DISCUSSED WITH DR GO. RECOMMENDING SNF NOW. MET WITH PT AND SON/SUMAN. PT IS A/O TODAY AND AGREEABLE TO SNF. FAMILY IS ARRANGING FOR PT TO [place] BUT NEED SOME TIME TO GET ALL ARRANGED. PT WEAK. DISCUSSED SNF, FIRST CHOICE IS [facility]. CALL TO [facility], THEY ARE FULL. DISCUSSED OTHER OPTIONS. FAMILY IS FAMILIAR WITH [facility] NOW CALLED [facility]. HAD FAMILY THERE. CALL TO [facility], THEY HAVE BEDS AND SHE WILL COME TO EVAL PT TODAY. FAXED REFERRAL TO HER. CALL TO MARIAH/ROSITA TO UPDATE ALSO, HAD TO LEAVE MESSAGE
[2017-09-30 11:31] VITALS: BP 143/54
[2017-09-30] MEDS ORDERED: ARICEPT 5 MG TAB5 MG PO (13:50)
[2017-09-30] MEDS ORDERED: BACTRIM DS TAB1 EACH PO (14:43)
--- NOTE | 2017-10-01 10:39 | EEG ---
[address] [address] EEG STUDY REPORT Name: ELIECER JOHNSON Room: [address] IN M.R.#: [id number] Admission: 09/25/17 Attend Phys: Nima Almendarez, Discharge: 09/30/17 Date of : 31 Report #: [id number] THIS REPORT FOR: //name// CC: Corwinfelicia Bonner Nima Almendarez DATE OF SERVICE: 09/29/2017 This patient is being evaluated for altered mental status. Background activity in this patient's EEG is about 7-8 Hz and 30 microvolts. The patient went to sleep. That is associated with bilateral slowing and vertex sharp waves. Photic stimulation is unremarkable. Throughout the record, no active epileptiform activity was noticed. IMPRESSION: Moderately abnormal electroencephalogram because it is disorganized and poorly formed. That is a nonspecific abnormality, which can occur with encephalopathy, effect of psychotropic medication, dementia, etc. Clinical correlation is recommended. Thank you very much for this referral. <ELECTRONICALLY SIGNED> By: Ankur Bermudez MD 10/01/17 1039 1523 1542Pjared Bermudez MD /nt
== END 2017-09-30 15:09 | DRG 91 ==
LOC: M.ERS 20:53 → M.2W 22:46 → M.TBA-ER 22:46 → M.2W 23:43
PROVIDERS: Internal Medicine; Personal Emergency Response Attendant; ADMIT Family Medicine
DX: G92 Toxic encephalopathy (principal); I50.33 Acute on chronic diastolic (congestive) heart failure; N39.0 Urinary tract infection, site not specified; R65.10 Systemic inflammatory response syndrome (SIRS) of non-infectious origin without acute organ dysfunction; F03.90 Unspecified dementia, unspecified severity, without behavioral disturbance, psychotic disturbance, mood disturbance, and anxiety; E03.9 Hypothyroidism, unspecified; I48.91 Unspecified atrial fibrillation; I11.0 Hypertensive heart disease with heart failure; I50.9 Heart failure, unspecified; Z90.49 Acquired absence of other specified parts of digestive tract; Z95.0 Presence of cardiac pacemaker; Z79.899 Other long term (current) drug therapy; Z88.8 Allergy status to other drugs, medicaments and biological substances

== ENCOUNTER 2018-09-11 02:59 | Inpatient (IN) | payer MEDICARE, OTHER ==
[2018-09-11] VITALS (7 sets, daily range): BP systolic 109–184; BP diastolic 42–88
[~2018-09-11] VITALS: Ht 157.5 cm; Wt 65.3 kg
[~2018-09-11 02:59] MED LIST changes: +ARICEPT 5 MG TAB5 MG PO; +BACTRIM DS TAB1 EACH PO; +CARVEDILOL12.5 MG PO; +DIGOXIN125 MCG PO; +DILTIAZEM HCL90 MG PO; +MAPAP325 MG PO; +UNISOM SLEEPMEL25 MG PO; +ZOFRAN ODT4 MG PO
[2018-09-11 03:27] LABS: ABSOLUTE BASOPHILS 0.1 thou/uL (0.0-0.2); ABSOLUTE EOSINOPHILS 0.3 thou/uL (0.0-0.7); ABSOLUTE LYMPHOCYTES 2.6 thou/uL (0.8-5.3); ABSOLUTE MONOCYTES 0.9 thou/uL (0.0-1.2); ABSOLUTE NEUTROPHILS 7.3 thou/uL (1.6-8.1); BASOPHILS 0.8 %; EOSINOPHILS 2.8 %; HEMATOCRIT 32.5 % (37.0-47.0); HEMOGLOBIN 10.5 gm/dL (12.0-15.0); LYMPHOCYTES 23.4 %; MCH 27.4 pg (26.0-34.0); MCHC 32.5 g/dL (28.0-37.0); MCV 84.2 fL (80.0-100.0); NUCLEATED RBCS 0 /100WBC; PLATELET COUNT* 171 thou/uL (150-400); RBC 3.86 mil/uL (4.20-5.00); RDW-CV 15.5 % (10.5-14.5); WBC 11.2 thou/uL (4.0-11.0)
[2018-09-11 03:31] LABS: ANION GAP 7 mmol/L (7-16); BUN 33 mg/dL (7-18); CALCIUM 8.4 mg/dL (8.5-10.1); CHLORIDE 106 mmol/L (98-107); CO2 27 mmol/L (21-32); CREATININE 1.4 mg/dL (0.6-1.3); GLUCOSE 154 mg/dL (70-99); POTASSIUM 4.4 mmol/L (3.5-5.1); SODIUM 140 mmol/L (136-145)
[2018-09-11] MEDS ORDERED: DILTIAZEM HCL90 MG PO (03:34)
[2018-09-11 03:36] LABS: INR 1.2
[2018-09-11] MEDS ORDERED: BAYER CHEWABLE81 MG PO (03:38)
[2018-09-11] MEDS ORDERED: LASIX 20 MG TAB20 MG PO (03:39)
[2018-09-11] MEDS ORDERED: XALATAN2.5 ML OPHTHALMIC (03:40)
[2018-09-11] MEDS ORDERED: NAMENDA 5 MG TAB5 M1 PO (03:40)
[2018-09-11] MEDS ORDERED: REMERON15 MG PO (03:41)
[2018-09-11 03:42] LABS: ALBUMIN 3.3 g/dL (3.4-5.0); ALKALINE PHOSPHATASE 67 U/L (46-116); MAGNESIUM 1.8 mg/dL (1.8-2.4); NT-PRO BRAIN NAT PEPTIDE 4119 pg/mL (<300); SGOT 34 U/L (15-37); SGPT 46 U/L (30-65); TOTAL BILIRUBIN 0.3 mg/dL (<0.1-1.0); TOTAL PROTEIN 6.8 g/dL (6.4-8.2); TROPONIN-I LEVEL <0.06 ng/mL (<0.06)
[2018-09-11] MEDS ORDERED: POTASSIUM CHLO10 MEQ PO (03:42)
[2018-09-11] MEDS ORDERED: ZOLOFT25 MG PO (03:43)
[2018-09-11] MEDS ORDERED: PEPCID20 MG PO (03:44)
[2018-09-11] MEDS ORDERED: TRIAMCINOLONE A80 G2 TOP (03:44)
[2018-09-11 04:20] LABS: BE -1.9 mmol/L (-2 to +3); HCO3 22.7 mmol/L (22.0-26.0); PCO2 38.1 mmHg (35.0-45.0); PO2 75.3 mmHg (75.0-100.0); pH 7.393 (7.340-7.450)
--- NOTE | 2018-09-11 06:15 | NUR ---
ASSESSMENT: PT IS ALERT AND ORIENT TIMES FOUR. UP WITH MINIMAL ASSISTANCE. ARRIVED ON THE UNIT AT APPROXIMATELY 0555. NO SKIN ISSUES. HAS A PACE MAKER. V-PACED PER MONITOR. ON 2 LITERS, SOB WITH EXERTION. NO COMPLAINTS, DENY PAIN. SIGNED CONSENT FORM TO TREAT AND FALL CONTRACT. WILL CONTINUE TO MONITOR.
[2018-09-11 07:53] LABS: CALCIUM 8.2 mg/dL (8.5-10.1); CREATININE 1.3 mg/dL (0.6-1.3); DIRECT BILIRUBIN 0.2 mg/dL (<0.1-0.3); PHOSPHORUS* 2.8 mg/dL (2.5-4.9); POTASSIUM 4.3 mmol/L (3.5-5.1); TOTAL BILIRUBIN 0.4 mg/dL (<0.1-1.0); TOTAL PROTEIN 6.2 g/dL (6.4-8.2)
--- NOTE | 2018-09-11 12:31 | EKG ---
[place] [address] ELECTROCARDIOGRAM REPORT Name: ELIECER JOHNSON Room: [address] ADM IN M.R.#: [id number] Admission: 09/11/18 Attend Phys: Vonnie Fiore Discharge: Date of : 31 Report #: [id number] THIS REPORT FOR: //name// [facility] ED Test Date: 2018-09-11 Test Time: 03:25:28 Pat Name: ELIECER JOHNSON Department: Room: [facility] Gender: F Internal Combustion Engineer: Amanda FRIAS : 1935 Requested By: Michelle Laws Order Number: [id number] MD: Claude Pena Measurements Intervals [place] Rate: 66 P: [place]: QRS: 29 QRSD: 73 T: 229 QT: 352 QTc: 369 Interpretive Statements Afib/flut and V-paced complexes No further rhythm analysis attempted due to paced rhythm Nonspecific repol abnormality, diffuse leads Compared to ECG 09/08/2018 22:50:39 Early repolarization now present Electronically Signed On 09-11-2018 12:31:40 REFINERY OPERATOR L[employer]DS [employer]OVERY by Claude Pena [email or web address] <ELECTRONICALLY SIGNED> By: Claude Pena MD, FACC 09/11/18 1231 0325 0325 Claude Pena MD, FAC /EPI
--- NOTE | 2018-09-11 12:32 | EKG ---
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: : 1935 Requested By: Michelle Laws Order Number: [id number] MD: Claude Pena Measurements Intervals [place] Rate: 74 P: [place]: QRS: 32 QRSD: 80 T: 228 QT: 412 QTc: 457 Interpretive Statements Afib/flut and V-paced complexes No further rhythm analysis attempted due to paced rhythm Borderline low voltage, extremity leads Nonspecific repol abnormality, diffuse leads Compared to ECG 09/08/2018 22:50:39 Early repolarization now present Electronically Signed On 09-11-2018 12:32:03 METAL CASKET MAKER by Claude Pena [email or web address] <ELECTRONICALLY SIGNED> By: Claude Pena MD, FACC 09/11/18 1232 0753 0753 Claude Pena MD, FAC /EPI
--- NOTE | 2018-09-11 16:44 | NUR ---
PT RESTING IN BED THROUGHOUT SHIFT. CALLS APPROPRIATELY FOR ASSIST. TOLERATING PO WELL. O2@2L NC
[2018-09-12 00:04] VITALS: BP 143/55
[2018-09-12 03:44] VITALS: BP 159/65
--- NOTE | 2018-09-12 05:59 | NUR ---
PATIENT IS ON TELE WITH A PACEMAKER. TELE SHOWED INTERMITTENT V-PACING WITH A BASELINE RHYTHM OF A-FIB. PATIENT HAD NO C/O PAIN DURING THE SHIFT AND SLEPT WELL OVERNIGHT.
[2018-09-12 07:30] VITALS: BP 153/56
[2018-09-12 12:00] VITALS: BP 117/60
--- NOTE | 2018-09-12 12:47 | CON ---
[address] [address] CONSULTATION Name: ELIECER JOHNSON Room: [address] IN .R.#: [id number] Admission: 09/11/18 Attend Phys: Vonnie Fiore Discharge: Date of : 31 Report #: [id number] THIS REPORT FOR: //name// CC: Marifer Bonner INDICATION: Abnormal EKG. HISTORY OF PRESENT ILLNESS: The patient is a very pleasant 82-year-old white female who resides in assisted care. She was admitted to the hospital with hypoxic respiratory failure and pneumonia. In this setting, she was felt to have an abnormal EKG. She does have chronic atrial fibrillation, status post pacemaker placement. She has a history of Takotsubo cardiomyopathy remotely. At the present, she is not having any significant shortness of breath or chest pain. Telemetry monitoring shows intermittent ventricular pacing with underlying atrial fibrillation. EKG, when she is not pacing, shows a deeply inverted T wave with ST segment depression that is present on her chronic EKGs as well. Troponins are unremarkable. PAST MEDICAL HISTORY: 1. Chronic atrial fibrillation. 2. Status post pacemaker placement. 3. Chronic dementia. 4. History of Takotsubo cardiomyopathy. 5. Hypertension. 4. Hyperlipidemia. ALLERGIES: PROPRANOLOL and LOVASTATIN. HOME MEDICATIONS: Lipitor 40 mg daily, multivitamin 1 tablet daily, Aricept 5 mg daily, carvedilol 12.5 mg b.i.d., Tylenol p.r.n., Zofran p.r.n., diphenhydramine p.r.n., aspirin 81 mg daily, furosemide 20 mg daily, latanoprost eyedrops at bedtime, Namenda 5 mg b.i.d., Remeron 15 mg at bedtime, potassium chloride 10 mEq daily, sertraline 25 mg daily, Pepcid 20 mg p.r.n., triamcinolone cream topically as directed, digoxin 0.125 mg daily, and diltiazem 90 mg daily. SOCIAL HISTORY: The patient does not smoke. She lives in assisted care. No alcohol use. FAMILY HISTORY: Noncontributory. PHYSICAL EXAMINATION: VITAL SIGNS: Stable. Blood pressure 160/60, pulse in the upper 60s and irregular. GENERAL: This is a pleasant elderly female in no distress. Mood and [place] [address] CONSULTATION Name: ELIECER JOHNSON Room: [address]#: [id number] Admission: 09/11/18 Attend Phys: Vonnie Fiore Discharge: Date of : 31 Report #: [id number] HEENT: Extraocular muscles intact. NECK: Shows no jugular venous distention. There are no carotid bruits. CHEST: Reveals clear lung villalta. CARDIAC: Reveals an irregularly irregular rhythm. Rate is controlled. I do not appreciate gallop or murmur. ABDOMEN: Reveals normal bowel sounds. EXTREMITIES: Shows no edema. Peripheral pulses palpable. SKIN: Dry. LABORATORY DATA: A 12-lead EKG shows intermittent pacing with underlying atrial fibrillation. Her [place] complexes show T-wave inversion and ST segment depression that is not significantly changed from prior EKGs. Labs are reviewed. Troponin less than 0.06. Chest x-ray shows mild cardiomegaly and mild vascular congestion. IMPRESSION AND RECOMMENDATIONS: 1. Abnormal EKG. Her EKG appears to be intermittently ventricularly paced versus chronic atrial fibrillation with [place] complexes. I am not overly concerned about the ST segment depression as this has been present on previous EKGs. Could check digoxin level to follow this up. No other changes at this time. 2. Chronic atrial fibrillation, rate adequately controlled presently. 3. Hypertension. Adjust medications in an effort to improve blood pressure control. 4. Kakrx-vm-dbwvlcf diastolic heart failure, presently compensated. We will give her a single dose of IV Lasix. 5. Hyperlipidemia. Continue atorvastatin at current dose. <ELECTRONICALLY SIGNED> By: Claude Pena MD, FACC 09/12/18 1247 1001 [id number] Pena MD, FACC /nt
--- NOTE | 2018-09-12 15:20 | NUR ---
SW met with pt to complete initial assessment, introduce self, and SW role. Pt alert, oriented. Pt expressed that she felt she was doing better. Pt lives at the [facility]. Pt has history of SNF at [facility] and [facility]. Pt might need oxygen at dc? Pt does not currently have any DME at home. Pt had hx of [facility] in [place], [place]. Pt has supportive family. SW to continue to follow to assist with safe dc planning. Possibility for pt to dc tomorrow.
[2018-09-12 16:00] VITALS: BP 136/70
--- NOTE | 2018-09-12 18:31 | NUR ---
ASSESSMENT COMPLETE. PT ALERT AND ORIENTED X4. FORGETFUL AND CONFUSED AT TIMES. PT DENIES PAIN AND N/V. PT IS ON ROOM AIR WITH [place] SATS. PT IS AFIB/VPACED ON TELE MONITOR. DR ORTIZ CONSULTED AND STATES PT IS OK TO DC IN AM. DIGOXIN LEVEL WITHIN NORMAL LIMITS TODAY. PT TURNS SELF IN BED. SKIN W/D/I. PT IS UP STANDBY ASSIST. PT IS ON XARELTO, ASPIRIN DC'D TODAY. PT HAS NO OTHER CONCERNS AT THIS TIME. SEE ASSESSMENT AND VITALS FOR OTHER DETAILS. CALL LIGHT WITHIN REACH, WILL CONTINUE PLAN OF CARE
[2018-09-12 20:00] VITALS: BP 117/59
[2018-09-13 00:20] VITALS: BP 149/57
[2018-09-13 03:50] VITALS: BP 152/77
[2018-09-13 04:11] LABS: ABSOLUTE BASOPHILS 0.1 thou/uL (0.0-0.2); ABSOLUTE EOSINOPHILS 0.2 thou/uL (0.0-0.7); ABSOLUTE LYMPHOCYTES 3.1 thou/uL (0.8-5.3); ABSOLUTE MONOCYTES 0.7 thou/uL (0.0-1.2); ABSOLUTE NEUTROPHILS 4.6 thou/uL (1.6-8.1); BASOPHILS 0.7 %; EOSINOPHILS 2.8 %; HEMATOCRIT 31.5 % (37.0-47.0); HEMOGLOBIN 10.5 gm/dL (12.0-15.0); LYMPHOCYTES 35.4 %; MCHC 33.2 g/dL (28.0-37.0); MCV 84.3 fL (80.0-100.0); MPV 9.7 fl. (7.2-11.1); NUCLEATED RBCS 0 /100WBC; PLATELET COUNT* 149 thou/uL (150-400); POLYS 53.1 %; RBC 3.74 mil/uL (4.20-5.00); RDW-CV 15.5 % (10.5-14.5); WBC 8.7 thou/uL (4.0-11.0)
--- NOTE | 2018-09-13 04:59 | NUR ---
ASSESMENT: PT REMAIN ALERT AND ORIENT TIMES FOUR. UP WITH SBA TO THE BR. DENIES PAIN, SOB AND NAUSEA. VSS, AFEBRILE. TOLERATING PO DIET. NO COMPLAINTS, JUST READY TO RETURN TO [facility]. V-PACED PER MONITOR WITH UNDERLINE RHYTHM OF CHRONIC CONTROLLED A-FIB. NO SPUTUM/UA COLLECTED. SLEPT MOST OF THE NIGHT, GOOD PROGRESS TOWARDS DC GOALS. WILL CONTINUE TO MONITOR.
[2018-09-13] MEDS ORDERED: DIGOXIN125 MCG PO (08:23)
[2018-09-13 09:55] VITALS: BP 152/77
[2018-09-13 11:45] VITALS: BP 152/77
--- NOTE | 2018-09-13 11:46 | NUR ---
Pt to dc home today to [facility]; pt family to provide pt ride home. DANILO called [facility] who will accept pt home to [facility] today. DANILO provided nurse number to provide report. DANILO confirmed with pt nurse that pt does not qualify for oxygen. DANILO faxed referral and orders to pt/family preference of [facility]. [phone] fax [phone].
--- NOTE | 2018-09-13 11:55 | NUR ---
ASSESSMENT COMPLETE. PT ALERT AND ORIENTED X4. PT DENIES PAIN AND N/V. PT TAKES MEDICATIONS WITHOUT DIFFICULTY AND TOLERATING DIET. DR SOLORIO ORDERED OXYGEN REST AND EXERCISE AND PASSED WITH GERALDO IN RT. PT GIVEN DC INSTRUCTIONS AND VERBALIZES UNDERSTANDING. IV DC'D WITHOUT COMPLICATIONS. CALLED [facility] AND GAVE REPORT TO NURSE. DIGOXIN CHANGED TO EVERY OTHER DAY AND ASPIRIN DC'D PER DR ORTIZ. PT TAKEN OUT VIA WHEELCHAIR WITH NURSING STAFF TO PERSONAL VEHICLE AT 1155. ALL BELONGINGS SENT WITH PT
[2018-09-13 12:01] VITALS: BP 152/77
== END 2018-09-13 11:55 | disposition home health service (06) | DRG 291 ==
LOC: M.ERS 02:59 → M.3W 04:37 → M.TBA-ER 04:37 → M.3W 05:49
PROVIDERS: Personal Emergency Response Attendant; ADMIT Internal Medicine
DX: I13.0 Hypertensive heart and chronic kidney disease with heart failure and stage 1 through stage 4 chronic kidney disease, or unspecified chronic kidney disease (principal); J96.91 Respiratory failure, unspecified with hypoxia; I50.43 Acute on chronic combined systolic (congestive) and diastolic (congestive) heart failure; N18.3 Chronic kidney disease, stage 3 (moderate); I42.9 Cardiomyopathy, unspecified; T46.0X5A Adverse effect of cardiac-stimulant glycosides and drugs of similar action, initial encounter; E03.9 Hypothyroidism, unspecified; R07.89 Other chest pain; I27.20 Pulmonary hypertension, unspecified; I48.2 Chronic atrial fibrillation; F32.9 Major depressive disorder, single episode, unspecified; F03.90 Unspecified dementia, unspecified severity, without behavioral disturbance, psychotic disturbance, mood disturbance, and anxiety; E78.5 Hyperlipidemia, unspecified; Z79.82 Long term (current) use of aspirin; Z79.899 Other long term (current) drug therapy; Z95.0 Presence of cardiac pacemaker; Z88.8 Allergy status to other drugs, medicaments and biological substances; Z82.49 Family history of ischemic heart disease and other diseases of the circulatory system; Y92.89 Other specified places as the place of occurrence of the external cause

== ENCOUNTER → 2018-09-23 | Outpatient (CLI) | payer MEDICARE, OTHER ==
[~2018-09-23] MED LIST changes: +BAYER CHEWABLE81 MG PO; +NAMENDA 5 MG TAB5 M1 PO; +POTASSIUM CHLO10 MEQ PO; +REMERON15 MG PO; +TRIAMCINOLONE A80 G2 TOP; +XALATAN2.5 ML OPHTHALMIC; +ZOLOFT25 MG PO
[2018-09-23 15:17] LABS: CALCIUM 9.2 mg/dL (8.5-10.1); CREATININE 1.7 mg/dL (0.6-1.3); POTASSIUM 4.2 mmol/L (3.5-5.1)
== END ==
LOC: M.LAB 14:51
PROVIDERS: Registered Nurse
DX: N28.9 Disorder of kidney and ureter, unspecified (principal)

== ENCOUNTER 2019-03-05 12:22 | Inpatient (IN) | payer MEDICARE, OTHER ==
[~2019-03-05] VITALS: Ht 157.5 cm; Wt 64.2 kg
[2019-03-05 12:29] VITALS: BP 158/69
[2019-03-05 12:50] LABS: HEMATOCRIT 33.5 % (37.0-47.0); HEMOGLOBIN 10.8 gm/dL (12.0-15.0); MCH 25.8 pg (26.0-34.0); MCHC 32.3 g/dL (28.0-37.0); MCV 79.9 fL (80.0-100.0); MPV 8.8 fl. (7.2-11.1); NUCLEATED RBCS 0 /100WBC; PLATELET COUNT* 185 thou/uL (150-400); RDW-CV 16.9 % (10.5-14.5)
[2019-03-05] MEDS ORDERED: UNISOM50 MG PO (12:59)
[2019-03-05 13:00] LABS: INR 1.3; PROTIME 12.8 Seconds (9.20-11.50)
[2019-03-05 13:02] LABS: ANION GAP 9 mmol/L (7-16); BUN 26 mg/dL (7-18); CALCIUM 9.2 mg/dL (8.5-10.1); CHLORIDE 105 mmol/L (98-107); CO2 28 mmol/L (21-32); CREATININE 1.5 mg/dL (0.6-1.3); GLUCOSE 105 mg/dL (70-99); POTASSIUM 4.3 mmol/L (3.5-5.1); SODIUM 142 mmol/L (136-145)
[2019-03-05 13:13] LABS: ALBUMIN 3.6 g/dL (3.4-5.0); ALKALINE PHOSPHATASE 71 U/L (46-116); LIPASE 247 U/L (73-393); NT-PRO BRAIN NAT PEPTIDE 2214 pg/mL (<300); SGOT 23 U/L (15-37); SGPT 25 U/L (30-65); TOTAL BILIRUBIN 0.5 mg/dL (<0.1-1.0); TROPONIN-I LEVEL <0.06 ng/mL (<0.06)
[2019-03-05 13:44] LABS: ABSOLUTE BASOPHILS 0.1 thou/uL (0.0-0.2); ABSOLUTE LYMPHOCYTES 1.6 thou/uL (0.8-5.3); ABSOLUTE MONOCYTES 0.4 thou/uL (0.0-1.2); ATYPICAL LYMPHS 8 %
[2019-03-05 13:45] LABS: PLATELET ESTIMATE ADEQUATE
[2019-03-05 15:50] VITALS: BP 191/68
[2019-03-05] MEDS ORDERED: REMERON15 MG PO (15:55)
[2019-03-05] MEDS ORDERED: XARELTO20 MG PO (15:56)
[2019-03-05] MEDS ORDERED: ZOLOFT50 MG PO (15:56)
[2019-03-05] MEDS ORDERED: PEPCID20 MG PO (15:57)
[2019-03-05] MEDS ORDERED: TYLENOL325 MG PO (15:57)
[2019-03-05] MEDS ORDERED: ZOFRAN ODT4 MG PO (15:58)
[2019-03-05 15:59] VITALS: BP 168/70
[2019-03-05 16:23] VITALS: BP 191/68
--- NOTE | 2019-03-05 17:30 | NUR ---
PATIENT ARRIVED FROM ER THIS AFTERNNON. PATIENT SETTLED TO ROOM AND HISTORY, ASSESSMENT AND VITALS COMPLETED AND DOCUMENTED. PATIENT DENIES ANY PAIN. PATIENT IS UP TO BATHROOM WITH STANDBY ASSIST. PATIENTHAS GOOD APPETITE. PATIENT DENIES ANY NEEDS AT THIS TIME. CALL LIGHT WITHIN REACH. WILL CONTINUE TO MONITOR.
[2019-03-05 19:50] VITALS: BP 130/67
[2019-03-06] VITALS: BP 126/63
[2019-03-06 04:00] VITALS: BP 123/64
--- NOTE | 2019-03-06 05:49 | NUR ---
PT CARE ASSUMED AT 1930. SAT MAINTAINED IN RA. ALERT AND ORIENTED X4. CALL LIGHT WITHIN REACH AND BED IN LOW POSITION. DENIES PAIN AND SOB. HOURLY ROUNDING DONE FOR PT SAFETY.
[2019-03-06 08:00] VITALS: BP 122/63
[2019-03-06 10:11] LABS: CALCIUM 9.3 mg/dL (8.5-10.1); CREATININE 1.4 mg/dL (0.6-1.3); POTASSIUM 3.9 mmol/L (3.5-5.1)
[2019-03-06 10:36] VITALS: BP 152/61
--- NOTE | 2019-03-06 11:08 | NUR ---
Pt having procedure completed in room, CM to f/u later
--- NOTE | 2019-03-06 11:54 | NUR ---
Pt is A&O. Resides at [facility], plans to return at ne, Pt is hopeful that she will be able to dc later today. No DME. Hx of [facility]. Hx of skilled at [facility] in [place]. Pt is independent with ADLs, [facility] completes cooking and cleaning. Supportive family in room. Family to transport at ne. Following.
--- NOTE | 2019-03-06 12:29 | EKG ---
[place] [address] ELECTROCARDIOGRAM REPORT Name: ELIECER JOHNSON Room: [address] ADM IN M.R.#: [id number] Admission: 03/05/19 Attend Phys: Alberto Bryan Discharge: Date of : 31 Report #: [id number] THIS REPORT FOR: //name// [facility] ED Test Date: 2019-03-05 Test Time: 12:29:04 Pat Name: ELIECER JOHNSON Department: Room: [facility] Gender: F Supervisor Keymodule Assembly: : 1935 Requested By: Ryan Reyes Order Number: [id number] MD: Jordan Farmer Measurements Intervals [place] Rate: 77 P: CT: QRS: 11 QRSD: 87 T: -85 QT: 420 QTc: 476 Interpretive Statements Afib/flut and V-paced complexes; rare pvc's No further rhythm analysis attempted due to paced rhythm Borderline repolarization abnormality Compared to ECG 09/11/2018 07:53:44 No significant changes Electronically Signed On 03-06-2019 12:29:20 CDT by Jordan Farmer [email or web address] <ELECTRONICALLY SIGNED> By: Jordan Farmer MD, [facility] 03/06/19 1229 1229 1229 Jordan Farmer MD, [facility] /EPI
--- NOTE | 2019-03-06 15:00 | NUR ---
ASSUMED PT CARE REPORT RECEIVED FROM NURSE. PT IS AOX4 TRACING AFIB ON WATER PLANT PUMP OPERATOR. ON RA. PT VSS ARE STABLE. NEW ORDER OF CHEST XRAY AND LASIX RECEIVED AND ADMINISTERED ORDERED. CARDIOLOGY CONSULTED. ECHO WAS ORDERED. CARDIOLOGY IS STILL PENDING TO SEE PT. WILL CONTINUE TO MONITOR.
--- NOTE | 2019-03-06 17:10 | 2DMMODE ---
[place] [address] 2 D/M-MODE ECHOCARDIOGRAM Name: ELIECER JOHNSON Room: [facility] IN [facility]#: [id number] Admission: 03/05/19 Attend Phys: Jesus Ernst Discharge: Date of : 31 Date of Service: 03/06/19 1710 Report #: [id number] THIS REPORT FOR: //name// APPROVED REPORT Study performed: 03/06/2019 10:53:23 EXAM: Comprehensive 2D, Doppler, and color-flow Echocardiogram Patient Location: In-Patient Room #: 202 Status: routine BSA: 1.66 HR: 82 bpm BP: 122/63 mmHg Rhythm: NSR Other Information Study Quality: Good Indications Congestive Heart Failure 2D Dimensions IVSd: 10.02 (7-11mm) LVOT Diam: 18.61 (18-24mm) LVDd: 44.97 mm PWd: 9.33 (7-11mm) Ascending Ao: 34.22 (22-36mm) LVDs: 30.56 (25-40mm) Aortic Root: 29.46 mm Volumes Left Atrial Volume (Systole) LA ESV Index: 75.70 mL/m2 Aortic Valve AoV Peak Anthony.: 1.38 m/s AO Peak Gr.: 7.57 mmHg LVOT Max P.42 mmHg AO Mean Gr.: 4.12 mmHg LVOT Mean P.08 mmHg LVOT Max V: 0.78 m/s AO V2 VTI: 27.00 cm LVOT Mean V: 0.47 m/s ALETA (VTI): 1.62 cm2 LVOT V1 VTI: 16.05 cm AI Leake: 2.70 m/s2 AI PHT: 475.71 ms Mitral Valve MV Decel. Time: 119.30 [place] [address] 2 D/M-MODE ECHOCARDIOGRAM Name: ELIECER JOHNSON J Room: [address] IN .R.#: [id number] Admission: 03/05/19 Attend Phys: Jesus Ernst Discharge: Date of : 31 Date of Service: 03/06/19 1710 Report #: [id number] MV PHT: 34.60 ms MVA (PHT): 6.36 cm2 TDI Medial E' Anthony.: 0.11 m/s Lateral E' Anthony.: 0.14 m/s Pulmonary Valve PV Peak Anthony.: 0.61 m/s PV Peak Gr.: 1.49 mmHg Tricuspid Valve RAP Estimate: 5.00 mmHg TR Peak Gr.: 30.16 mmHg RVSP: 35.00 mmHg PA Pressure: 35.00 mmHg Left Ventricle The left ventricle is normal size. There is normal LV segmental wall motion. There is normal left ventricular wall thickness. Left ventricular systolic function is mildly decreased. LVEF is 45-50%. This study is not technically sufficient to allow evaluation of the LV diastolic function due to atrial fibrillation. Right Ventricle The right ventricle is normal size. The right ventricular systolic function is normal. Pacemaker lead is present in the right ventricle. Atria Left atrium is severely dilated. Right atrium is dilated. Aortic Valve Mild aortic valve sclerosis. Mild to moderate aortic regurgitation. No hemodynamically significant valvular aortic stenosis. Mitral Valve The mitral valve is normal in structure. There is no mitral valve regurgitation noted. No evidence of mitral valve stenosis. Tricuspid Valve The tricuspid valve is normal in structure. Moderate tricuspid regurgitation. Mild pulmonary hypertension. Pulmonic Valve The pulmonary valve is normal in structure. There is no pulmonic valvular regurgitation[place] [address] 2 D/M-MODE ECHOCARDIOGRAM Name: ELIECER JOHNSON Room: [address] IN [facility]#: [id number] Admission: 03/05/19 Attend Phys: Jesus Ernst Discharge: Date of : 31 Date of Service: 03/06/19 1710 Report #: [id number] The aortic root is normal in size. IVC is normal in size and collapses >50% with inspiration. Pericardium There is no pericardial effusion. <Conclusion> The left ventricle is normal size. There is normal left ventricular wall thickness. Left ventricular systolic function is mildly decreased. LVEF is 45-50%. This study is not technically sufficient to allow evaluation of the LV diastolic function due to atrial fibrillation. The right ventricle is normal size. Left atrium is severely dilated. Right atrium is dilated. Mild aortic valve sclerosis. Mild to moderate aortic regurgitation. No hemodynamically significant valvular aortic stenosis. The mitral valve is normal in structure. The tricuspid valve is normal in structure. Moderate tricuspid regurgitation. Mild pulmonary hypertension. IVC is normal in size and collapses >50% with inspiration. There is no pericardial effusion. There is normal LV segmental wall motion. Pacemaker lead is present in the right ventricle. <ELECTRONICALLY SIGNED> By: Jordan Farmer MD, FACC 03/06/191709 09 09 Jordan Farmer MD, FACC /INF
[2019-03-06 19:50] VITALS: BP 116/50
[2019-03-07] VITALS (7 sets, daily range): BP systolic 94–129; BP diastolic 46–71
--- NOTE | 2019-03-07 06:59 | NUR ---
PT CARE ASSUMED AT 1930. SAT MAINTAINED IN RA. CALL LIGHT WITHIN REACH AND BED IN LOW POSITION. DENIES PAIN AND SOB. ALERT AND ORIENTED X4. HOURLY ROUNDING DONE FOR PT SAFETY.
[2019-03-07] MEDS ORDERED: ASPIR 8181 M1 PO (11:02)
[2019-03-07] MEDS ORDERED: LASIX 40 MG TAB40 M2 PO (11:39)
--- NOTE | 2019-03-07 11:44 | NUR ---
ASSUMED PT CARE REPORT RECEIVED FROM NURSE. PT IS AOX4. TRACING AFLUTTER/AFIB ON SILK SCREENER. RATE CONTROLLED.VSS. DISCHARGE PENDING. PT WALKED WITH PHYSICAL THERAPY. ON RA, AND O2 SATURATION IS 96%. WILL CONTINUE TO MONITOR PT.
--- NOTE | 2019-03-07 12:25 | NUR ---
PHYSICAL THERAPIST WENT TO WALK WITH PT. PT FEELS WEAK AND DIZZY. VS TAKEN. BP 94/46, HR 67. PT IS TOO WEAK TO WALK. WILL HOLD ON TO DISCHARGE AND COMMUNICATE WITH DR BEFORE RELEASING PT.
--- NOTE | 2019-03-07 12:38 | NUR ---
DC orders written. Pt worked with PT, at which point Pt's BP was low. Plan dc later today if BP normalizes.
--- NOTE | 2019-03-07 14:38 | NUR ---
PT LEFT FLOOR ACCOMPANIED BY NURSING STAFF AND DAUGHTER ON A WHEELCHAIR. LAST BP TAKEN WA 124/57 HR 67. REPORT CALLED AND GIVEN TO NURSE FROM [facility]
--- NOTE | 2019-03-09 17:02 | CON ---
[facility] [address] [place] [address] CONSULTATION Name: ELIECER JOHNSON Room: [address] IN M.R.#: [id number] Admission: 03/05/19 Attend Phys: Alberto Bryan Discharge: 03/07/19 Date of : 31 Report #: [id number] THIS REPORT FOR: //name// CC: Corwin Ernst DATE OF SERVICE: 03/07/2019 INDICATION: Chest tightness, shortness of breath. HISTORY OF PRESENT ILLNESS: The patient is a very pleasant 83-year-old white female who was brought to the hospital with complaints of increasing dyspnea and chest tightness. She did rule out for myocardial infarction. EKG did not show any ST elevation. Her NT-proBNP was elevated consistent with acute heart failure. The patient was diuresed and has had prompt resolution of her symptoms. She is no longer having chest tightness or dyspnea. She has a history of sick sinus syndrome and now chronic atrial fibrillation. She is status post dual chamber pacemaker placement remotely. She is chronically anticoagulated and having no bleeding problems. In 2017, she had stress-induced cardiomyopathy. Echocardiogram on this admission shows an EF of 40 to 45%. She has moderate aortic insufficiency that is clinically stable. PAST MEDICAL HISTORY: 1. Sick sinus syndrome and now chronic atrial fibrillation. 2. Status post pacemaker placement. 3. Coronary artery disease. 4. Hypertension. 5. Hyperlipidemia. 6. Chronic renal insufficiency. 7. Hypothyroidism. FAMILY HISTORY: Noncontributory. SOCIAL HISTORY: The patient is . She is a lifelong nonsmoker. She does not drink alcohol. REVIEW OF SYSTEMS: A 14-point review of systems is positive for dyspnea, hypothyroidism. She wears glasses without acute visual change, otherwise unremarkable. PHYSICAL EXAMINATION: VITAL SIGNS: Stable. Blood pressure 129/66, pulse is in the 70s and irregular. GENERAL: This is a pleasant elderly female in no [place] [address] CONSULTATION Name: ELIECER JOHNSON Room: [address]#: [id number] Admission: 03/05/19 Attend Phys: Alberto Bryan Discharge: 03/07/19 Date of : 31 Report #: [id number]. HEENT: The patient is wearing glasses. Extraocular muscles intact. Mucous membranes moist. NECK: Shows no jugular venous distention. There are no carotid bruits. CHEST: Reveals clear lung villalta. CARDIOVASCULAR: Reveals an irregularly irregular rhythm with a 2/6 systolic ejection murmur. ABDOMEN: Reveals normal bowel sounds. The abdomen is soft, nontender. EXTREMITIES: Shows no edema. Peripheral pulses palpable. SKIN: Warm and dry. LABORATORY DATA: Reviewed. Sodium 141, potassium 3.9, chloride 103, bicarbonate 31, BUN 21, creatinine 1.4, serum glucose 109. LFTs are within normal limits. Troponins less than 0.06 on 3 separate occasions. NT-proBNP was 2214. White blood cell count 6.0, hemoglobin 10.8, and platelet count 185,000. IMPRESSION AND RECOMMENDATIONS: 1. Acute on chronic combined heart failure. Symptoms improved with IV Lasix. We would recommend discharge dose of 40 mg daily. 2. Chronic atrial fibrillation, rate adequately controlled. The patient is chronically anticoagulated having no bleeding problems, continue as outlined above. 3. Coronary artery disease, nonocclusive by remote catheterization, patient presently stable. We will arrange outpatient stress testing to evaluate complaints of chest tightness. 4. Hypertension, well controlled on current medication. 5. Hyperlipidemia. Continue atorvastatin at current dose. At this point in time, the patient appears stable for discharge from a cardiac standpoint. <ELECTRONICALLY SIGNED> By: Claude Pena MD, FACC 03/09/19 1702 0953 1137Micarun Pena MD, FACC /nt
== END 2019-03-07 15:00 | DRG 291 ==
LOC: M.ERS 12:22 → M.2W 13:55 → M.TBA-ER 13:55 → M.2W 15:51
PROVIDERS: Emergency Medicine Emergency Medical Services; ADMIT Internal Medicine
DX: I13.0 Hypertensive heart and chronic kidney disease with heart failure and stage 1 through stage 4 chronic kidney disease, or unspecified chronic kidney disease (principal); I50.43 Acute on chronic combined systolic (congestive) and diastolic (congestive) heart failure; N18.3 Chronic kidney disease, stage 3 (moderate); E03.9 Hypothyroidism, unspecified; I48.91 Unspecified atrial fibrillation; F32.9 Major depressive disorder, single episode, unspecified; F03.90 Unspecified dementia, unspecified severity, without behavioral disturbance, psychotic disturbance, mood disturbance, and anxiety; I49.5 Sick sinus syndrome; I48.2 Chronic atrial fibrillation; I25.10 Atherosclerotic heart disease of native coronary artery without angina pectoris; I42.9 Cardiomyopathy, unspecified; E78.5 Hyperlipidemia, unspecified; Z95.0 Presence of cardiac pacemaker; Z79.890 Hormone replacement therapy; Z88.8 Allergy status to other drugs, medicaments and biological substances

== ENCOUNTER 2019-05-26 18:45 | Inpatient (IN) | payer MEDICARE, OTHER ==
[~2019-05-26] VITALS: Ht 154.9 cm; Wt 66.7 kg
[~2019-05-26 18:45] MED LIST changes: +ASPIR 8181 M1 PO; +LASIX 40 MG TAB40 M2 PO; +TYLENOL325 MG PO; +UNISOM50 MG PO; +ZOLOFT50 MG PO
[2019-05-26 18:48] VITALS: BP 139/106
[2019-05-26 19:26] LABS: HEMATOCRIT 32.4 % (37.0-47.0); HEMOGLOBIN 10.6 gm/dL (12.0-15.0); MCH 25.9 pg (26.0-34.0); MCHC 32.7 g/dL (28.0-37.0); MCV 79.1 fL (80.0-100.0); MPV 8.9 fl. (7.2-11.1); NUCLEATED RBCS 0 /100WBC; PLATELET COUNT* 198 thou/uL (150-400); WBC 6.3 thou/uL (4.0-11.0)
[2019-05-26 19:36] LABS: ANION GAP 6 mmol/L (7-16); BUN 24 mg/dL (7-18); CALCIUM 9.1 mg/dL (8.5-10.1); CHLORIDE 103 mmol/L (98-107); CO2 28 mmol/L (21-32); CREATININE 1.6 mg/dL (0.6-1.3); GLUCOSE 163 mg/dL (70-99); POTASSIUM 4.6 mmol/L (3.5-5.1); SODIUM 137 mmol/L (136-145)
[2019-05-26 19:45] LABS: ALBUMIN 3.6 g/dL (3.4-5.0); ALKALINE PHOSPHATASE 71 U/L (46-116); LIPASE 328 U/L (73-393); SGOT 21 U/L (15-37); SGPT 27 U/L (30-65); TOTAL BILIRUBIN 0.2 mg/dL (<0.1-1.0); TOTAL PROTEIN 7.1 g/dL (6.4-8.2); TROPONIN-I LEVEL <0.06 ng/mL (<0.06)
[2019-05-26 20:33] LABS: ABSOLUTE EOSINOPHILS 0.3 thou/uL (0.0-0.7); ABSOLUTE LYMPHOCYTES 1.9 thou/uL (0.8-5.3); ABSOLUTE MONOCYTES 0.3 thou/uL (0.0-1.2); ABSOLUTE NEUTROPHILS 3.8 thou/uL (1.6-8.1); ATYPICAL LYMPHS 3 %
[2019-05-26 20:34] LABS: PLATELET ESTIMATE ADEQUATE
[2019-05-26 20:44] LABS: URINE BILIRUBIN NEGATIVE (Negative); URINE BLOOD TRACE (Negative); URINE CLARITY CLEAR; URINE COLOR YELLOW; URINE GLUCOSE-RANDOM NEGATIVE (Negative); URINE KETONES NEGATIVE (Negative); URINE LEUKOCYTES-REFLEX 1+ (Negative); URINE NITRITE-REFLEX NEGATIVE (Negative); URINE PROTEIN NEGATIVE (Negative); URINE UROBILINOGEN 0.2 E.U./dl (0.2-1.0)
[2019-05-26 20:56] LABS: BACTERIA-REFLEX None Seen /HPF (None Seen); CASTS None Seen /LPF (None Seen); CRYSTALS None Seen /LPF (None Seen); SQUAMOUS 0-3 Few /LPF (0-3); URINE RBC 0-2 Rare /HPF (0-2); URINE WBC-REFLEX 0-5 Rare /HPF (0-5)
[2019-05-26 21:08] VITALS: BP 153/56
[2019-05-26 21:14] VITALS: BP 175/77
[2019-05-27] VITALS (7 sets, daily range): BP systolic 113–179; BP diastolic 52–79
[2019-05-28 04:23] LABS: HEMATOCRIT 34.4 % (37.0-47.0); HEMOGLOBIN 11.2 gm/dL (12.0-15.0); MCH 25.6 pg (26.0-34.0); MCHC 32.4 g/dL (28.0-37.0); MCV 79.1 fL (80.0-100.0); MPV 9.3 fl. (7.2-11.1); RBC 4.35 mil/uL (4.20-5.00); RDW-CV 16.2 % (10.5-14.5); WBC 7.2 thou/uL (4.0-11.0)
[2019-05-28 06:21] LABS: CALCIUM 9.1 mg/dL (8.5-10.1); POTASSIUM 4.6 mmol/L (3.5-5.1)
[2019-05-28 08:00] VITALS: BP 125/60
[2019-05-28 15:44] VITALS: BP 130/64
[2019-05-28 20:40] VITALS: BP 130/40
[2019-05-29 07:40] VITALS: BP 146/65
[2019-05-29 10:41] LABS: CALCIUM 8.6 mg/dL (8.5-10.1); CREATININE 1.5 mg/dL (0.6-1.3); POTASSIUM 3.9 mmol/L (3.5-5.1)
[2019-05-29] MEDS ORDERED: ZOLOFT100 MG PO (14:48)
[2019-05-29] MEDS ORDERED: REMERON15 MG PO (14:48)
[2019-05-29 15:42] VITALS: BP 193/85
[2019-05-29 15:56] VITALS: BP 178/79
--- NOTE | 2019-05-29 16:11 | EKG ---
[place] [address] ELECTROCARDIOGRAM REPORT Name: ELIECER JOHNSON Room: [address] ADM IN M.R.#: [id number] Admission: 05/26/19 Attend Phys: Vonnie Fiore Discharge: Date of : 31 Report #: [id number] THIS REPORT FOR: //name// 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: JULY : 1935 Requested By: Bryce Catherine Order Number: [id number] MD: Jordan Farmer Measurements Intervals [place] Rate: 80 P: [place]: QRS: 50 QRSD: 76 T: -66 QT: 310 QTc: 358 Interpretive Statements Atrial fibrillation Consider anterior infarct Nonspecific repol abnormality, lateral leads Compared to ECG 03/05/2019 12:29:04 Myocardial infarct finding now present Ventricular-paced complex(es) or rhythm no longer present Electronically Signed On 05-29-2019 16:11:03 CDT by Jordan Farmer [email or web address] <ELECTRONICALLY SIGNED> By: Jordan Farmer MD, FAC 05/29/19 1611 32 32 Jordan Farmer MD, [facility] /EPI
--- NOTE | 2019-05-29 16:12 | EKG ---
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
--- NOTE | 2019-05-29 16:19 | 2DMMODE ---
[place] [address] 2 D/M-MODE ECHOCARDIOGRAM Name: ELIECER JOHNSON Room: [facility] IN .R#: [id number] Admission: 05/26/19 Attend Phys: Marifer Mendoza Discharge: Date of : 31 Date of Service: 05/29/19 1520 Report #: [id number] THIS REPORT FOR: //name// APPROVED REPORT Study performed: 05/29/2019 14:05:02 EXAM: Comprehensive 2D, Doppler, and color-flow Echocardiogram Patient Location: In-Patient Room #: [facility] BSA: 1.66 HR: 84 bpm BP: 130/40 mmHg Other Information Study Quality: Good Indications Atrial Fibrillation Dyspnea 2D Dimensions IVSd: 14.84 (7-11mm) LVOT Diam: 19.69 (18-24mm) LVDd: 42.00 mm PWd: 10.12 (7-11mm) Ascending Ao: 33.31 (22-36mm) LVDs: 26.63 (25-40mm) Aortic Root: 26.60 mm Volumes Left Atrial Volume (Systole) LA ESV Index: 78.10 mL/m2 Aortic Valve AoV Peak Anthony.: 1.38 m/s AO Peak Gr.: 7.56 mmHg LVOT Max P.13 mmHg AO Mean Gr.: 3.81 mmHg LVOT Mean P.24 mmHg LVOT Max V: 0.88 m/s AO V2 VTI: 23.49 cm LVOT Mean V: 0.50 m/s ALETA (VTI): 1.84 cm2 LVOT V1 VTI: 14.20 cm AI Gregg: 3.81 m/s2 AI PHT: 360.63 ms Mitral Valve MV Decel. Time: 99.45 [place] [address] 2 D/M-MODE ECHOCARDIOGRAM Name: JOHNSON,MARY J Room: [address] IN .R.#: [id number] Admission: 05/26/19 Attend Phys: Marifer Mendoza Discharge: Date of : 31 Date of Service: 05/29/19 1520 Report #: [id number] MV E Max Anthony.: 1.09 m/s MV PHT: 28.84 ms MVA (PHT): 7.63 cm2 TDI E/Lateral E': 7.79 E/Medial E': 10.90 Medial E' Anthony.: 0.10 m/s Lateral E' Anthony.: 0.14 m/s Pulmonary Valve PV Peak Anthony.: 0.76 m/s PV Peak Gr.: 2.33 mmHg Tricuspid Valve RAP Estimate: 5.00 mmHg TR Peak Gr.: 31.79 mmHg RVSP: 36.79 mmHg PA Pressure: 36.79 mmHg Left Ventricle The left ventricle is normal size. There is normal LV segmental wall motion. There is normal left ventricular wall thickness. Left ventricular systolic function is normal. The left ventricular ejection fraction is within the normal range. LVEF is 60%. This study is not technically sufficient to allow evaluation of the LV diastolic function due to atrial fibrillation. Right Ventricle The right ventricle is normal size. The right ventricular systolic function is normal. Atria Left atrium is moderately dilated. Right atrium is mildly dilated. Aortic Valve Mild aortic valve sclerosis. Mild aortic regurgitation. There is no aortic valvular stenosis. Mitral Valve The mitral valve is normal in structure. Mild to moderate mitral regurgitation. No evidence of mitral valve stenosis. Tricuspid Valve The tricuspid valve is normal in structure. Moderate tricuspid regurgitation. The RVSP is __52 mmHg. [place] [address] 2 D/M-MODE ECHOCARDIOGRAM Name: ELIECER JOHNSON Room: [address] IN [facility]#: [id number] Admission: 05/26/19 Attend Phys: Marifre Mendoza Discharge: Date of : 31 Date of Service: 05/29/19 1520 Report #: [id number] The pulmonary valve is normal in structure. Mild pulmonic regurgitation. Great Vessels The aortic root is normal in size. IVC is normal in size and collapses >50% with inspiration. Pericardium There is no pericardial effusion. <Conclusion> The left ventricle is normal size. There is normal left ventricular wall thickness. Left ventricular systolic function is normal. The left ventricular ejection fraction is within the normal range. LVEF is 60%. This study is not technically sufficient to allow evaluation of the LV diastolic function due to atrial fibrillation. The right ventricle is normal size. Left atrium is moderately dilated. Right atrium is mildly dilated. Mild aortic valve sclerosis. Mild aortic regurgitation. There is no aortic valvular stenosis. The mitral valve is normal in structure. Mild to moderate mitral regurgitation. The tricuspid valve is normal in structure. Moderate tricuspid regurgitation. The RVSP is __52 mmHg. IVC is normal in size and collapses >50% with inspiration. There is no pericardial effusion. There is normal LV segmental wall motion. <ELECTRONICALLY SIGNED> By: Jordan Farmer MD, FACC 05/29/19 1520 1520 1520 Jordan Farmer MD, FACC /INF
[2019-05-29 16:32] VITALS: BP 161/77
== END 2019-05-29 16:45 | disposition home health service (06) | DRG 291 ==
LOC: M.ERS 18:45 → M.TBA-ER 20:16 → M.3W 20:16
PROVIDERS: Family Medicine; ADMIT Internal Medicine
PROC: 4B02XSZ Measurement of Cardiac Pacemaker, External Approach (ICD-10-PCS; principal; 2019-05-28)
DX: I13.0 Hypertensive heart and chronic kidney disease with heart failure and stage 1 through stage 4 chronic kidney disease, or unspecified chronic kidney disease (principal); I50.23 Acute on chronic systolic (congestive) heart failure; E46 Unspecified protein-calorie malnutrition; D68.69 Other thrombophilia; N18.3 Chronic kidney disease, stage 3 (moderate); E78.5 Hyperlipidemia, unspecified; F32.9 Major depressive disorder, single episode, unspecified; E86.0 Dehydration; I25.10 Atherosclerotic heart disease of native coronary artery without angina pectoris; I27.20 Pulmonary hypertension, unspecified; E03.9 Hypothyroidism, unspecified; I48.91 Unspecified atrial fibrillation; F03.90 Unspecified dementia, unspecified severity, without behavioral disturbance, psychotic disturbance, mood disturbance, and anxiety; Z95.0 Presence of cardiac pacemaker; Z79.01 Long term (current) use of anticoagulants; Z79.82 Long term (current) use of aspirin; Z79.899 Other long term (current) drug therapy; Z88.8 Allergy status to other drugs, medicaments and biological substances; Z82.49 Family history of ischemic heart disease and other diseases of the circulatory system